=== PATIENT | female | born 1985 | race Caucasian/White ===

== ENCOUNTER 2021-11-13 09:15 | Emergency (ER) | payer OTHER, SELFPAY ==
[2021-11-13 09:43] VITALS: BP 145/86; PULSE 97; RESP 20; TEMP 37.2; O2SAT 100; BMI 32.4
[2021-11-13 09:52] LABS: Appearance Urine UA CLEAR; Bilirubin Urine UA NEGATIVE (NEGATIVE); Color Urine UA YELLOW; Glucose Urine UA NEGATIVE (Negative); Ketones Urine UA NEGATIVE (NEGATIVE); Leukocyte Esterase Urine UA NEGATIVE (NEGATIVE); Nitrite Urine UA NEGATIVE (Negative); Occult Blood Urine UA NEGATIVE (Negative); Protein Urine UA 1+ (Negative); Urobilinogen Urine UA 0.2 E.U./dL (0.2)
--- NOTE | 2021-11-13 10:00 | ED.GENADULT ---
HPI - General Adult General Chief complaint: Upper Respiratory Symptoms Stated complaint: 36 weeks sob Time Seen by Provider: 11/13/21 09:59 Source: patient Mode of arrival: Ambulatory Limitations: no limitations History of Present Illness HPI narrative: Patient is a 36-year-old otherwise healthy female at 36 weeks EGA who is here for evaluation of a couple days of upper respiratory infection like symptoms to include cough and sore throat and sinus congestion. She states that the shortness of breath secondary to her coughing. Nonproductive cough. No fevers. Has not tried anything for the symptoms. Has worsened over the past couple days. Denies any abdominal pain, cramping, urinary symptoms, vaginal bleeding or vaginal discharge. She is new to the area. Does not have an OB doctor locally. Stated that she was going to receive a call on Monday from the local clinic to establish her with a primary OB. Review of Systems Constitutional Constitutional: Reports system reviewed and no additional complaints, except as documented Eyes Eyes: Reports system reviewed and no additional complaints, except as documented ENT Ears, Nose, Mouth, and Throat: Reports system reviewed and no additional complaints, except as documented Respiratory Respiratory: Reports system reviewed and no additional complaints, except as documented Gastrointestinal Gastrointestinal: Reports system reviewed and no additional complaints, except as documented Genitourinary Genitourinary: Reports system reviewed and no additional complaints, except as documented Hematologic/Lymphatic On Anticoagulants: No Allergic/Immunologic Allergic/Immunologic: Reports system reviewed and no additional complaints, except as documented Patient History Medical History Healthy adult Social History lives independently: Yes Exam Initial Vital Signs Initial Vital Signs: Vital Signs Temperature 98.9 F 11/13/21 09:43 Pulse Rate 97 H 11/13/21 09:43 Respiratory Rate 20 11/13/21 09:43 Blood Pressure 145/86 H 11/13/21 09:43 Pulse Oximetry 100 11/13/21 09:43 Oxygen Delivery Method 11/13/21 09:43 Const General: cooperative and healthy appearing HENMT Ears: EAC's normal and TM abnormal bulging bilaterally and wth effusion (Bilateral); not erythematous Mouth: oral mucosae normal Throat: posterior oropharynx normal Neck Lymphatic: No lymphadenopathy Resp Effort & Inspection: normal respiratory effort Cardio Rate: regular rate GI Other: Gravid abdomen Skin General: no rashes or lesions noted Neuro General: patient alert, patient awake and moves all extremities Extrem General: normal to inspection Course Orders Ordered: ED Orders 11/13/21 09:45 Urinalysis and Microscopic Stat 11/13/21 09:49 Respiratory Panel (Film Array) Stat Vital Signs Vital signs: Vital Signs - 8 hr 11/13/21 09:43 Temperature 98.9 F Pulse Rate 97 H Respiratory Rate 20 Blood Pressure 145/86 H Pulse Oximetry 100 Oxygen Delivery Method Room Air Medical Decision Making Lab Data Labs: Lab Results 11/13/21 11/13/21 Range/Units 09:45 09:49 Urine Color Yellow Urine Appearance Clear Urine pH 7.5 (4.5-8.0) Ur Specific [place] 1.010 (1.000-1.035) Urine Protein 1+ H (Negative) Urine Glucose (UA) Negative (Negative) g/dL Urine Ketones Negative (NEGATIVE) Urine Occult Blood Negative (Negative) Urine Nitrate Negative (Negative) Urine Bilirubin Negative (NEGATIVE) Urine Urobilinogen 0.2 (0.2) E.U./dL Ur Leukocyte Esterase Negative (NEGATIVE) Urine RBC 0-1/hpf (0-5/HPF) Urine WBC 5-10/hpf H (0-5/HPF) Ur Squamous Epith Cells 10-30 /hpf H (0-5/HPF) Urine Bacteria Many (>30) H (None) Ur Culture Indicated? Cult not indicated Chlamy pneumoniae PCR Not detected (Not Detect) Adenovirus (PCR) Not detected (Not Detect) B. pertussis DNA (PCR) Not detected (Not Detecte) B.parapertussis DNA PCR Not detected (Not Detecte) Coronavirus OC43 (PCR) Not detected (Not Detect) Coronavirus HKU1 (PCR) Not detected (Not Detect) Coronavirus 229E (PCR) Not detected (Not Detect) SARS-CoV-2 (PCR) Not detected (Not Detecte) Coronavirus NL63 (PCR) Not detected (Not Detect) Human Metapneumovir PCR Not detected (Not Detect) Influenza A (RT-PCR) Cancelled Influenza Type A (PCR) Not detected (Not Detect) Influenza B (RT-PCR) Cancelled Influenza Type B (PCR) Not detected (Not Detect) M. pneumoniae (PCR) Not detected (Not Detect) Parainfluenza 1 (PCR) Not detected (Not Detect) Parainfluenza 2 (PCR) Not detected (Not Detect) Parainfluenza 3 (PCR) Not detected (Not Detect) Parainfluenza 4 (PCR) Not detected (Not Detect) RSV (PCR) Not detected (Not Detect) Entero/Rhino (PCR) Not detected (Not Detect) MDM Narrative Medical decision making narrative: Patient does have an obvious upper respiratory infection but respiratory panel was negative. COVID is negative. Flu is negative. Does have bulging bilateral tympanic membranes without erythema. Initial blood pressure elevated however repeat was normal. She did have preeclampsia with her 1st . No further workup needed here in the emergency department for now however she does require follow-up for this. She is scheduled to receive a phone call from her new primary OBs office on Monday for follow-up. Here in the emergency department she is not having abdominal cramping or bleeding or other signs of labor. Will discharge home with symptom treatment. We did discuss this. She was given return precautions. She expressed understanding and agreement. Discharge Plan Departure Patient Disposition: Home Clinical Impression: Upper respiratory infection Instructions: DI for Viral Upper Respiratory Infection -- Adult Activity Restrictions/Additional Instructions: You can take Claritin during . You can also take Benadryl. You can take Tylenol for any fevers or body aches. It is important that you make contact with an OB provider here in the local area given the stage of your . Return to the emergency department for any new or worsening symptoms. Referrals: Provider,Sebastian SAUER [Primary Care Provider] -
[2021-11-13 10:08] LABS: RBC Urine 0-1/HPF (0-5/HPF); WBC Urine 5-10/HPF (0-5/HPF); pH Urine UA 7.5 (4.5-8.0)
[2021-11-13 10:09] LABS: Bacteria Urine Many (>30); Culture Indicated Urine Cult Not Indicated; Squamous Epithelial Cell Urine 10-30 /HPF (0-5/HPF)
[2021-11-13 10:48] LABS: Adenovirus Not Detected (Not Detect); B. parapertussis Not Detected (Not Detecte); Bordetella pertussis Not Detected (Not Detecte); Chlamydophila pneumoniae Not Detected (Not Detect); Coronavirus 229E Not Detected (Not Detect); Coronavirus HKU1 Not Detected (Not Detect); Coronavirus NL 63 Not Detected (Not Detect); Coronavirus OC43 Not Detected (Not Detect); Human Metapneumovirus Not Detected (Not Detect); Human Rhinovirus/Enterovirus Not Detected (Not Detect); Influenza A Not Detected (Not Detect); Influenza B Not Detected (Not Detect); Mycoplasma pneumoniae Not Detected (Not Detect); Parainfluenza Virus 1 Not Detected (Not Detect); Parainfluenza Virus 2 Not Detected (Not Detect); Parainfluenza Virus 3 Not Detected (Not Detect); Parainfluenza Virus 4 Not Detected (Not Detect); Respiratory Syncytial Virus Not Detected (Not Detect); SARS- CoV-2 Not Detected (Not Detecte)
[2021-11-13 10:55] VITALS: BP 121/73
[2021-11-13 11:17] VITALS: BP 133/66; PULSE 93; RESP 20; O2SAT 100
== END 2021-11-13 11:18 | disposition home or self-care (01) ==
PROVIDERS: Emergency Provider Emergency Medicine
DX: J06.9 Acute upper respiratory infection, unspecified (principal); Z20.822 Contact with and (suspected) exposure to COVID-19
CPT/HCPCS: 81001; 87633; 99282

== ENCOUNTER → 2021-11-23 14:06 | Outpatient (CLI) | payer OTHER, SELFPAY ==
[2021-11-24 16:25] LABS: Strep Grp B PCR NEG for Grp B Strep
== END ==
PROVIDERS: Visit Provider Obstetrics & Gynecology
DX: Z34.83 Encounter for supervision of other normal pregnancy, third trimester (principal); Z3A.37 37 weeks gestation of pregnancy
CPT/HCPCS: 87653

== ENCOUNTER 2021-12-09 05:48 | Inpatient (IN) | payer OTHER, SELFPAY ==
[2021-12-09] VITALS (7 sets, daily range): BP systolic 115–146; BP diastolic 56–84; PULSE 74–84; RESP 16–21; TEMP 36.1–36.8; O2SAT 97–99
[2021-12-09] MEDS: LACTATED RINGERS 1,000 ML 100 ML IV ×2 (06:05→10:32)
--- NOTE | 2021-12-09 06:13 | SUR.OPER ---
Supine on Padded OR bed, head on pillow, safety belt at thigh, arms secured on padded arm boards at <90 degrees abduction. Bump under right buttock. Legs uncrossed with pillow under knees, gel pad to heels, tape over blanket to lower legs.
[2021-12-09 06:29] LABS: Add Manual Diff / Slide Review NO; Basophils Absolute Auto 100 /uL (0-100); Basophils Percent Auto 0.6 % (0-2); Eosinophils Absolute Auto 100 /uL (0-450); Eosinophils Percent Auto 1.3 % (2-4); Hematocrit 33.3 % (36-46); Hemoglobin 11.4 g/dL (12.0-16.0); Lymphocytes Absolute Auto 1900 /uL (1100-4500); Lymphocytes Percent Auto 19.7 % (25-40); Mean Corpuscular HGB Conc 34.3 % (30-36); Mean Corpuscular Hemoglobin 29.9 PG (26-34); Mean Corpuscular Volume 87.1 fL (80-100); Monocytes Absolute Auto 700 /uL (0-900); Monocytes Percent Auto 7.6 % (3-14); Neutrophils Absolute Auto 6900 /uL (1500-7000); Neutrophils Percent Auto 70.8 % (50-75); Platelet Count 171 X10^3/uL (150-400); Red Blood Cell Count 3.82 X10^6/uL (4.0-5.2); Red Cell Distribution Width 14.7 % (11.6-14.8); White Blood Cell Count 9.8 X10^3/uL (4.5-11.0)
--- NOTE | 2021-12-09 06:38 | PM.OBHP.1 ---
OB HPI Date/Time Date of admission: 12/09/21 Date Patient Seen: 12/09/21 Time Patient Seen: 06:39 History of Present Condition Chief complaint: REPEAT : 2 Para: 1 Estimated Date of Delivery: 12/14/21 Estimated Gestational Age (weeks): 39 Narrative: Seema Phipps is a 36 year old female admitted for repeat Indications Operative indications ( section): previous uterine surgery History of Present care: good care, initiated at week # (9), number of visits (7) and pounds weight gain (20) Dating criteria: LMP confirmed by 1st trimester US Ultrasounds: normal mid trimester US Obstetrical complications: none Medical complications: none Preadmission Labs Blood type: A (+) positive -: Antibody screen: negative, GBS status: negative, HBsAG: negative, HIV: negative and RPR/VDLR: negative -: Chlamydia screen: not detected and Gonorrhea screen: not detected -: Rubella: immune HCAB: negative 1 hr GTT: 164 Prior (ies) History: 02/12/2019 38 week gestation for breech PIH 7 lb 12 oz male Evaluation Evaluation Baseline heart rate: 150 Variability: Moderate (11-25) monitor accelerations: Present Monitor Decelerations: Absent Contraction Frequency (minutes): 0 Category of Tracing: Reactive Status: Category l PFSH Medical History (Updated 12/02/21 @ 21:53 by Nathalie Krishnamurthy) Depression Fibroids (~2018) Healthy adult PTSD (post-traumatic stress disorder) (~2019) Rathke's cleft cyst (~2003) Surgical History (Updated 12/02/21 @ 21:53 by Nathalie Krishnamurthy) Anesthesia History of delivery, antepartum (~02/12/19) Previous section [place] teeth extracted Family History (Updated 12/02/21 @ 21:56 by Nathalie Krishnamurthy) Mother Hypothyroidism Osteopenia Father Healthy adult Grandfather Heart attack Grandmother Healthy adult Grandmother Dementia Hypothyroidism Grandfather Dementia Obesity History of heart disease Mental health problem Family/Other Dementia Family/Other Jorge's thyroiditis Brother Autism Social History marital status: number of children: 1 household members: spouse and children lives independently: Yes housing: house pets and animals: No education level: master's degree occupational status: employed current occupational exposures/hazards: No special lj needs: No travel history: recent (domestic only) seatbelt use: always water heater temp set < 120 deg: Yes working smoke detector in home: Yes fire extinguisher in home: Yes carbon monox detector in home: Yes firearms in home: Yes firearms unloaded and locked: Yes do you feel safe at home: Yes Smoking Status: Never smoker alcohol intake: former (2-3/week when not ) substance use type: does not use during the past year weight has: remained stable well-balanced diet: about half the time daily servings fruits/ve-4 caffeine: Yes (1 cup coffee/day) Type(s) of exercise: none Meds Home Medications and Allergies Home Medications Medication Instructions Recorded Confirmed Type aspirin 81 mg tablet,delayed 81 mg PO DAILY 11/17/21 12/03/21 History release prenat.vits,cheng,yom-znkw-lqqzj 1 tab PO DAILY 11/17/21 12/03/21 History Allergies Allergy/AdvReac Type Severity Reaction Status Date / Time Sulfa (Sulfonamide Allergy Intermediate Hives Verified 12/03/21 13:56 Antibiotics) Review of Systems Review of Systems Narrative: Patient is doing well. Good movement. No headaches, scotomata, epigastric pain. No leakage of fluid. No contractions. OB Exam Narrative Exam Narrative: Blood pressure 138/84, pulse 102 HEENT exam within normal limits. Lungs are clear to auscultation percussion. Heart is regular rate and rhythm. Abdomen is soft, nontender. Fetus is vertex. Extremities without edema and nontender. Objective Labs Result Diagrams: 12/09/21 06:00 Labs: Laboratory Results - last 24 hr 12/09/21 06:00 WBC 9.8 RBC 3.82 L Hgb 11.4 L Hct 33.3 L MCV 87.1 MCH 29.9 MCHC 34.3 RDW 14.7 Plt Count 171 Neut % (Auto) 70.8 Lymph % (Auto) 19.7 L [place] % (Auto) 7.6 Eos % (Auto) 1.3 L Baso % (Auto) 0.6 Neut # (Auto) 6900 Lymph # (Auto) 1900 [place] # (Auto) 700 Eos # (Auto) 100 Baso # (Auto) 100 Assessment and Plan Assessment and Plan Assessment and Plan narrative: 39 week gestation with prior section for repeat low-transverse section
[2021-12-09 06:53] LABS: COVID19 -Nasal RAPID Negative (Negative)
[2021-12-09] MEDS: CEFAZOLIN 2 GM/100 ML PREMIX 100 ML IV (07:39)
--- NOTE | 2021-12-09 08:07 | SUR.OPER ---
VIABLE FEMALE INFANT DELIVERED AT 0807. CORD BLOOD AND PLACENTA TO OB WITH RN.
[2021-12-09] MEDS: ACETAMINOPHEN IV 1,000 MG/100 ML VIAL 400 MG IV (08:37)
--- NOTE | 2021-12-09 10:34 | PM.OBCS.1 ---
Operative Date/Time/Diagnoses Date of procedure: 12/09/21 Time of procedure: 08:40 Pre-op diagnosis: 39 week gestation with prior section Post-op diagnosis: same Procedure & Clinicians Procedure: Repeat low-transverse section Same procedure as scheduled: Yes Indications: 39 week gestation with prior section Surgeon: Dominga Zimmerman Wedding Planning Internship: Elda Burr Anesthesia Type: Spinal Operative Notes Findings: Normal tubes, ovaries, uterus. Viable female infant Apgars of 8 and 9 weighting 7 lb 14 oz Closure Type: primary Specimen(s): cord blood Intraoperative meds administered: Acetaminophen, Duramorph, Ketorolac and Pitocin Applied: Catheter (Bowser) Estimated Blood Loss (mL): 700 Blood products transfused: none Procedure in detail: The patient was brought to the operating room where she underwent a spinal for anesthesia. She was placed in a supine position with a left lateral tilt. A Bowser catheter was placed. Pulsatile stockings were placed and functional throughout the case. 2 g of Ancef were given IV prior to the incision. Warming was in place. The patient was prepped and draped in usual sterile fashion. A low transverse incision was made with a scalpel and the incision was carried down to the fascial layer which was incised transversely with scissors. The senior it assistant did her side of the incision. The midline attachments are superiorly and inferiorly with sharp dissection and Bovie. Some bleeding was controlled Bovie. The rectus muscles were in the midline and the peritoneal incision was made with no damage to internal structures. The peritoneum was incised and superiorly and inferiorly. The incision was stretched with the surgeon and senior it assistant placing traction. Bladder blade was placed and a bladder flap was developed and the bladder held away from the lower uterine segment. An incision was made in the uterus with the scalpel and the incision was extended with stretching. The head was elevated out of the abdomen and with fundal pressure by the senior it assistant the baby was delivered. The infant was bulb suctioned for clear fluid and handed off to the warmer after 1 minute of delayed cord clamping. Cord blood was collected. The placenta delivered spontaneously with traction. The uterus was cleaned with clean laps. The uterine incision was closed in 2 layers of 0 chromic suture the first a running locking layer the second an imbricating layer. The senior it assistant was helping to expose the incision. The bladder peritoneum was repaired with 2-0 Vicryl suture. The gutters were cleaned of any remaining fluids and ovaries and tubes were observed to be normal. Adequate hemostasis was noted. The perineum was closed with 2-0 Vicryl suture. The fascia layer was closed with 0 Vicryl suture with 2 stitches. The senior it assistant repairing half the incision with helping to retract and expose the incision for the other half. The incision was irrigated and adequate hemostasis noted. The incision was closed with interrupted 3-0 Vicryl sutures and then a subcuticular stitch of 4-0 Vicryl suture. Steri-Strips were placed. The uterus was massaged to remove any clots. The patient went to recovery room in good condition. Counts of instruments and sponges were correct. Dr. Burr was present throughout the case to assist with retraction, fundal pressure to deliver the infant, and suturing half the fascia. Complications: none [place] Baby 1: Gender: Female Presentation: vertex Position: Right Occiput Transverse Placental Delivery Description: Expressed Cord Vessel Description: 3 Vessels score (1 min): 8 score (5 min): 9 weight: 7 lb 14 oz Post-operative Condition: stable Disposition: PACU Aftercare: routine postop
--- NOTE | 2021-12-09 10:41 | PM.PREOP ---
Pre-operative Note COVID-19 COVID-19 status: Negative Result date/Date tested (Pos, Neg/Pending): 12/09/21 Criteria for continued procedure: Delay expected to result in less-positive ultimate med/surg outcome Interval Note History & Physical reviewed/Exam performed by Physician: Yes Changes to H&P: No
[2021-12-09] MEDS: KETOROLAC 30 MG/ML VIAL IV ×2 (14:45→21:31)
[2021-12-10] MEDS: KETOROLAC 30 MG/ML VIAL IV (03:43)
[2021-12-10 06:42] LABS: Add Manual Diff / Slide Review NO; Basophils Absolute Auto 0 /uL (0-100); Basophils Percent Auto 0.3 % (0-2); Eosinophils Absolute Auto 100 /uL (0-450); Hematocrit 27.2 % (36-46); Hemoglobin 9.3 g/dL (12.0-16.0); Lymphocytes Absolute Auto 1000 /uL (1100-4500); Lymphocytes Percent Auto 10.9 % (25-40); Mean Corpuscular HGB Conc 34.2 % (30-36); Mean Corpuscular Hemoglobin 29.9 PG (26-34); Mean Corpuscular Volume 87.3 fL (80-100); Monocytes Absolute Auto 600 /uL (0-900); Monocytes Percent Auto 6.6 % (3-14); Neutrophils Absolute Auto 7500 /uL (1500-7000); Neutrophils Percent Auto 81.2 % (50-75); Platelet Count 125 X10^3/uL (150-400); Red Blood Cell Count 3.11 X10^6/uL (4.0-5.2); Red Cell Distribution Width 15.1 % (11.6-14.8); White Blood Cell Count 9.2 X10^3/uL (4.5-11.0)
[2021-12-10] MEDS: DOCUSATE 100 MG CAPSULE 200 MG PO (08:21)
[2021-12-10] MEDS: ACETAMINOPHEN 325 MG TABLET 650 MG PO ×3 (08:21→22:30)
--- NOTE | 2021-12-10 09:29 | PM.OBPN.1 ---
Subjective - OB Subjective Patient comments: incisional pain baby status: doing well feeding status: exclusively breast feeding Date Patient Seen: 12/10/21 Time Patient Seen: 09:29 Interval history: Patient is postoperative day 1 repeat section. She feels she is doing well. She has been able to urinate since her Bowser catheter was removed. Her pain is tolerable. Her bleeding is okay. Exam Vital Signs (past 8 hours): Blood pressure 128/79, pulse 92, temperature 37? Oxygen Delivery Method Room Air Narrative Exam Narrative: Abdomen is soft, nontender. Uterus is firm, at U, appropriately tender. Dressing is clean, dry, intact. Mild lochia. Extremities with +1 edema but nontender. Objective Labs Result Diagrams: 12/10/21 06:19 Labs: Laboratory Results - last 24 hr 12/10/21 06:19 WBC 9.2 RBC 3.11 L Hgb 9.3 L Hct 27.2 L MCV 87.3 MCH 29.9 MCHC 34.2 RDW 15.1 H Plt Count 125 L Neut % (Auto) 81.2 H Lymph % (Auto) 10.9 L [place] % (Auto) 6.6 Eos % (Auto) 1.0 L Baso % (Auto) 0.3 Neut # (Auto) 7500 H Lymph # (Auto) 1000 L [place] # (Auto) 600 Eos # (Auto) 100 Baso # (Auto) 0 Assessment & Plan Plan day: 1 plan OB: routine postop care Time Spent With Patient Time: Total time spent is greater than 50% in coordination of care (as documented) at patient's floor/unit and/or counseling patient: Time with patient: less than 15 minutes
[2021-12-10] MEDS: IBUPROFEN 600 MG TABLET PO ×3 (10:28→22:30)
[2021-12-10 15:00] VITALS: BP 129/73; PULSE 79; RESP 17; TEMP 36.8
[2021-12-11] MEDS: IBUPROFEN 600 MG TABLET PO ×2 (04:00→11:03)
[2021-12-11] MEDS: ACETAMINOPHEN 325 MG TABLET 650 MG PO ×2 (04:00→11:04)
--- NOTE | 2021-12-11 09:18 | PM.OBDS.1 ---
Discharge Providers Provider Date of admission: 12/09/21 05:48 Discharge Date: 12/11/21 Primary care physician: Sebastian SAUER Provider Consults: 12/09/21 10:53 Consult to Medical Territory Manager Routine Comment: Discharge provider: Dominga Zimmerman MD Summary Hospital Course Date Patient Seen: 12/11/21 Time Patient Seen: 09:18 Diagnoses: Repeat section Hospital Course: Patient underwent a repeat low-transverse section for 39 week gestation with prior section. Patient is pumping to breastfeed. Her pain is under control. She is urinating and ambulating well. She is passing gas. Mild lochia. Peripartum Data Delivery Method: Section Procedures: Repeat low-transverse section complications: none [place] 1: Gender: Female Disposition of : home Discharge Diagnosis (1) Delivery by section using transverse incision of lower segment of uterus: Status: Acute Status at Discharge Cognitive/behavioral status at discharge: oriented Functional status at discharge: independent ambulation Overall status at discharge: patient is progressing back to baseline Time Spent with Patient Time attestation: Total time spent providing and/or coordinating discharge services: Time spent: Less than 30 minutes Objective Labs Result Diagrams: 12/10/21 06:19 Exam Vital Signs (past 8 hours): Blood pressure 121/71, pulse of 87, temperature 97.4? Oxygen Delivery Method Room Air Narrative Exam Narrative: Abdomen is soft, nontender. Uterus is firm, at U, appropriately tender. Dressing is clean, dry, intact. Mild lochia. Extremities with tr edema but improving and nontender. Discharge Plan Discharge Plan Patient Disposition: Home Provider Discharge Comment: Patient also advised to take shhh-rzg-curpbic iron along with her vitamins for anemia. Discharge orders & Medications Prescriptions: New ibuprofen 600 mg Tablet 600 mg PO Q6H PRN (Reason: Fever/Mild Pain (1-3)) Qty: 30 0RF oxycodone 5 mg Tablet 5 mg PO Q4H PRN (Reason: Pain, Moderate (4-6)) Qty: 20 0RF Continued prenat.vits,cheng,ueo-roti-hmtix Tablet 1 tab PO DAILY Discontinued aspirin 81 mg tablet,delayed release (DR/EC) 81 mg PO DAILY Follow up/Referrals: Dominga Zimmerman MD [Physician] - 1 Week (Aquacel removal. Any provider or nurse visit) Provider,Sebastian SAUER [Primary Care Provider] - Diet/Activity/Treatments Diet: Regular Activity: Nothing in vagina or do not lift over 20 lb for 6 weeks. Skin/Wound/Dressing Care Report to your healthcare provider any signs of infection, such as:: chills, fever and increased pain Dressing: Leave dressing on until your one-week postop visit Discharge Data Primary Care Provider: Sebastian Mccarty
== END 2021-12-11 12:59 | disposition home or self-care (01) | DRG 788 ==
PROVIDERS: Admitting Provider Specialist; Referring Provider Specialist; Visit Provider Specialist
PROC: 10D00Z1 Extraction of Products of Conception, Low, Open Approach (ICD-10-PCS; CPT 59514; principal; 2021-12-09 07:00)
DX: O34.211 Maternal care for low transverse scar from previous cesarean delivery (principal); Z3A.39 39 weeks gestation of pregnancy; Z37.0 Single live birth; Z20.822 Contact with and (suspected) exposure to COVID-19
CPT/HCPCS: 36415; 59050; 59514; 59515; 85025; 86850; 86900; 86901; 87635; C9803; J0131; J0690; J1885; J2274; J2590; J2704

== ENCOUNTER → 2023-09-07 11:49 | Outpatient (CLI) | payer OTHER, SELFPAY ==
--- NOTE | 2023-09-07 11:51 | DI.MRI.S_ITS ---
PROCEDURE: MR HIP LT WO CON INDICATIONS: LEFT HIP PAIN TECHNIQUE: Noncontrast coronal T1 spin echo and STIR through the bony pelvis. Coronal and axial T2 fast spin echo with fat saturation, sagittal T1 spin echo, and oblique axial T2 fast spin echo with fat saturation through the hip. COMPARISON: [facility] Outside Film, MR, MR LUMBAR SPINE WITHOUT CONTRAST, 01/03/2023, 12:51. FINDINGS: Image quality: Excellent. Bones and joints: Extensive heterogeneous marrow signal in the visualized lower lumbar spine, and pelvic bones. No marrow edema of the visualized lower lumbar spine, the sacrum, and either posterior iliac wing. The visualized sacrum is intact. The bilateral hips are well aligned. No acute fracture or dislocation either hip. No avascular necrosis of either femoral head. No significant effusion of either hip. Tendons and ligaments: The left iliopsoas, and adductor tendon are unremarkable. Mild peritendinitis of the hamstring tendon origin. No high-grade tear of the hamstring tendon. The the left gluteal minimus tendon is unremarkable. Mild peritendinitis of the left gluteal medius. Labrum and cartilage: Anterior superior labral tear. No paralabral cyst. No focal chondral defect of the left hip. Soft tissues: Susceptibility about the uterus, nonspecific and may be postprocedural. IMPRESSION: 1. Extensive heterogeneous marrow signal in the visualized lower lumbar spine, and bilateral pelvic bones, nonspecific. Recommend correlation with CBC. The marrow signal of the visualized lower lumbar spine is grossly unchanged from prior exam on 01/03/2023. 2. Mild peritendinitis of the left hamstring tendon origin and the left gluteus medius. Dictated by: Frida Aranda M.D. on 09/07/2023 at 16:54 Approved by: Frida Aranda M.D. on 09/07/2023 at 17:03
== END ==
PROVIDERS: Family Provider Student in an Organized Health Care Education/Training Program; PCP Student in an Organized Health Care Education/Training Program; Referring Provider Student in an Organized Health Care Education/Training Program; Visit Provider Student in an Organized Health Care Education/Training Program
DX: M76.02 Gluteal tendinitis, left hip (principal); M25.552 Pain in left hip
CPT/HCPCS: 73721

== ENCOUNTER 2023-12-18 09:00 | Outpatient (RCR) | payer OTHER, SELFPAY ==
--- NOTE | 2023-09-07 17:05 | PT.OIE ---
Current Diagnoses Constipation, unspecified (09/07/23) Stiffness of unspecified hip, not elsewhere classified (09/07/23) Stiffness of other specified joint, not elsewhere classified (09/07/23) Muscle weakness (generalized) (09/07/23) Stress incontinence (female) (male) (09/07/23) Past Medical History (Last Updated 01/19/22 @ 12:44 by Elier Morales MD) Delivery by section using transverse incision of lower segment of uterus (~12/09/21) Depression Fibroids (~2018) Healthy adult PTSD (post-traumatic stress disorder) (~2019) Rathke's cleft cyst (~2003) Past Surgical History (Last Updated 12/02/21 @ 21:53 by Nathalie Krishnamurthy) Anesthesia History of delivery, antepartum (~02/12/19) Previous section Jean teeth extracted Visit Care Team Role Provider Type Yraed Zavaleta DO Attending Provider Non-Staff Family Provider Primary Care Provider Referring Provider Specialty: Family Practice Address: [address] [place] [address], [facility] Email: Physical Therapy Initial Evaluation PT-OP-A Visit Information Start: 08/25/23 19:38 Freq: Status: Active Protocol: Document 09/07/23 10:40 LRN (Rec: 09/07/23 11:26 LRN [id number]) Out-Patient Physical Therapy Visit Information Visit Information Visit Type Initial Evaluation Visit Start Time 10:40 Visit Stop Time 11:25 Visit Number 03/10 Evaluation Information Evaluation Date 09/07/23 Precautions Precautions History of 2 C-sections: breach-01/2019, & 11/2021 PT-OP-B Current Condition Start: 08/25/23 19:38 Freq: Status: Active Protocol: Document 09/07/23 10:40 LRN (Rec: 09/07/23 11:26 LRN [id number]) Current Condition History of Current Condition Onset Date 2021 Current Complaints Urinary incontinence History of Current Condition After daughter born in 2021, had urinary incontinence with cough, sneeze, laugh; started U[employer] program for 1-2 yrs and thinks she made it worse because she had to take time to fully empty bladder and her symptoms didn't improve, stating may have made it worse. She returned to running 6 months ago 2x/wk, 10 mi/wk (previously was 5x/wk & 40 mi/wk). She states she hasn't noticed a change in her leakage with return to running. The pt voids before running, but leaks a little when she first starts running. Prior Treatments and Tests Pt is taking on her own weight control medications. Future Testing and Treatments Planned [employer] referral for kidney function. Treatment Goals Patient/Caregiver Goals Pt goals: Regain continence with cough, sneeze, laugh Normal fluid levels (in/out) and normal bowel movements. Learn what she needs to do to be come continent and agreeable HEP for post therapy . 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 Taking weight control medications independent of medical care. Pt receiving care for possible kidney dysfunction. PT-OP-C Subjective Start: 08/25/23 19:38 Freq: Status: Active Protocol: Document 09/07/23 10:40 LRN (Rec: 09/07/23 11:26 LRN [id number]) Patient Questionnaires Pelvic Pain and Urgency/Frequency Patient Symptom Scale Pelvic Pain Score 7 PT-OP-I Pelvic Floor Start: 08/25/23 19:38 Freq: Status: Active Protocol: Document 09/07/23 10:40 LRN (Rec: 09/07/23 11:26 LRN [id number]) Pelvic Floor Assessment Urine Urinary Symptoms Hesitancy,Incomplete Emptying Other Urinary Symptoms Has to sit longer to urinate and has to relax to urinate more. Urinates normal but has to wait a little longer to complete emptying. Sometimes has urge to urinate during intercourse; therefore urinates always after intercouse and has to wait longer to urinate after intercourse and has hesitancy. Leakage Size Small Leakage Cause Cough,Exercise,Sneeze Nocturia 1-2 Pads Used In 24 Hours 0 Bowel Bowel Symptoms Constipation Other Bowel Symptoms Medication: for weight loss medication not under physician care. Bowel Movement Frequency 1-3x/week [place] Stool Chart Type 1-7 3 Pelvic Clock Pelvic Clock Other Gaping at vaginal entry. Prolapse Rectocele Grade 1 Perineal Descent Resting Present Bearing Present Contraction Ability Voluntary Contraction Moderate Voluntary Relaxation Weak Manual Muscle Testing Left 3 Manual Muscle Testing Right 3 Manual Muscle Testing Anterior 2 Manual Muscle Testing Posterior 1 Muscle Endurance (Seconds) 10 Number of Quick Contractions In 10 6 Seconds PT-OP-J Posture/Palpation/Skin Start: 08/25/23 19:38 Freq: Status: Active Protocol: Document 09/07/23 10:40 LRN (Rec: 09/07/23 11:26 LRN [id number]) Posture Evaluation Position Standing Head/C-Spine Posture Forward Head L-Spine Posture Increased Lordosis Shoulder Posture (R) Elevated Pelvis Posture Anteriorly Tilted Comments Posture Comments Dowagers hump. PT-OP-K Range of Motion Start: 08/25/23 19:38 Freq: Status: Active Protocol: Document 09/07/23 10:40 LRN (Rec: 09/07/23 11:26 LRN [id number]) Lumbar Spine Range of Motion Lumbar Spine Active Degrees Testing Position Standing Flexion 87 Extension 15 Rotation Left 20 Rotation Right 30 Lateral Flexion Left 18 Lateral Flexion Right 15 Hip Goniometric Range of Motion Hip Right Passive Testing Position Supine Abduction 32 Internal Rotation 30 External Rotation 60 Left Passive Testing Position Supine Abduction 25 Internal Rotation 30 External Rotation 65 PT-OP-M Strength Start: 08/25/23 19:38 Freq: Status: Active Protocol: Document 09/07/23 10:40 LRN (Rec: 09/07/23 11:26 LRN [id number]) Hip Strength Hip Manual Muscle Testing Right Flexion (L2) 3 Fair Comments Strength is 5/5 except as indicated above. Left Extension (S1) 3 Fair External Rotation 3+ Fair+ Comments Strength is 5/5 except as indicated above. PT-OP-Q Treatments Start: 08/25/23 19:38 Freq: Status: Active Protocol: Document 09/07/23 10:40 LRN (Rec: 09/07/23 11:26 LRN [id number]) Self-Care/Home Management Treatment Education Other Education Discussed results of evaluation, goals, treatment, and plan of care (POC) with pt , attendance/cx/dns policy; pt agreeable to evaluation, goals, treatment, attendance/ cx/dns policy and POC. Discussed and educated pt in specifics for completion of in use of Bladder Diary and I/S in tracking for 1 week. Discussed use of 2 different diaries (one to chart, one to take notes) for tracking of bladder for next 7 days. Activities Self-Care/Home Management Activities Issued & briefly reviewed HEP: Diaphragmatic breathing ex. PT-OP-T Assessment and Plan Start: 08/25/23 19:38 Freq: Status: Active Protocol: Document 09/07/23 10:40 LRN (Rec: 09/07/23 11:26 LRN [id number]) Physical Therapy Assessment Rehab Potential Rehabilitation Potential Good Evaluation Complexity Number of Personal Factors/Comorbidities 3 or More Number of Body Systems Impaired 4 or More Clinical Presentation at Evaluation Evolving Impairments Impairments Activity Tolerance,ROM,Soft Tissue Mobility,Strength, Transfers Goals Three Impairment MCKENZIE with a strong cough, sneeze or laughing. Short Term Goal (STG) Improve PF strength with Long Hold 10 sec's (per Vemg biofeedback) and Quick Flicks 8 reps prior to fatigue ( Initial: Long Hold 10 secs, Quick Flicks 6 reps), and relax her PF floor so that she can initiate a urinary stream without long delay or having to void twice to empty. 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 LTG Duration 16 wks-12/29/23 Two Impairment Constipation with reports of dehydration Short Term Goal (STG) Pt will be educated and able to recall norms for fluids input/output and BMs. STG Duration 8 wks-11/03/23 [facility] Goal (LTG) Pt will track daily fluid input/output and BM's to improve to normal values (1/2 body wgt in ounces) and daily bowel movements. LTG Duration 16 wks-12/29/23 One Impairment Pt lacks an independent self care HEP. Short Term Goal (STG) Pt educated in aggrevator ex's and in methods to quiet the autonomic nervous system to decrease resting tone. STG Duration 8 wks-11/03/23 [facility] Goal (LTG) Pt will be independent in a self care HEP for PF flexibility/relaxation techniques, BM massage and Bowel care, . Learn what she needs to do to be come continent and agreeable HEP for post therapy . 09/07/23: HEP: Diaphragmatic breathing ex. LTG Duration 16 wks-12/29/23 Assessment Summary Assessment Pt is a 38 yo female with stress urinary incontinence, demonstrating poor core pressure management, poor core stabilization (weak TA/Trunk rotators), asymmetry of mobility of her hips/trunk, and per subjective report poor fluid & bowel management. Subjective report would indicate a tight PF with gapping of her introitus and good PF strength per digital exam, but she has no areas of tenderness with manual palpation. Fluid & bowel management is probably placing a lot of stress on her bladder and possible scarring from her may be a bigger factor in her urinary leakage. Further assessment through VEMG electrode will be more telling of her PF strength at her next visit. The pt will benefit from skilled physical therapy to address the areas as previously mentioned and to work towards achieving the above stated goals. Rehabilitation time is expected to be prolonged due to gaps in treatment from summer schedules and her multiple areas of involvement (kidney concerns & self over- the-counter medications for weight management). Physical Therapy Plan Frequency and Duration Frequency of Treatment 1x/Week Duration of treatment (weeks) 16 Plan of Care Start Date 09/07/23 Plan of Care End Date 12/29/23 Therapeutic Interventions Therapeutic Interventions Home Exercise Program,Joint Mobilizations,Manual Therapy, Neuromuscular Re-education, Self-Care/Home Management,Soft Tissue Mobilization,Taping, Therapeutic Activities, Therapeutic Exercises Modalities Biofeedback Next Visit Focus/Plan Next Note Type Treatment Note Next Visit Plan New POC after 10/19/23 referral end date, if more visits needed. Next: Assess PF strength/ relaxation per Vemg biofeedback and neuro re-ed for PF training. Assess bladder diary for fluid/bowel management and recommend changes as needed. Trunk and hip stretches for symmetry, hip strengthening, STM to C- section scar, & assess for need of sacral balancing, pt education in core pressure mgmt and PF relaxation w/ voiding. POC: Pt education, Manual therapy. Biofeedback/neural re-ed with vaginal sensor. Therapeutic Exercises, Therapeutic Activities, Neuromuscular Reeducation.
--- NOTE | 2023-09-11 16:00 | PT.OTN ---
Current Diagnoses Constipation, unspecified (09/11/23) Stiffness of unspecified hip, not elsewhere classified (09/11/23) Stiffness of other specified joint, not elsewhere classified (09/11/23) Muscle weakness (generalized) (09/11/23) Stress incontinence (female) (male) (09/11/23) Physical Therapy Treatment Note PT-OP-A Visit Information Start: 08/25/23 19:38 Freq: Status: Active Protocol: Document 09/11/23 10:42 LRN (Rec: 09/11/23 11:31 LRN [id number]) Out-Patient Physical Therapy Visit Information Visit Information Visit Type Treatment Note Visit Start Time 10:42 Visit Stop Time 11:30 Visit Number 04/10 Evaluation Information Evaluation Date 09/07/23 Precautions Precautions History of 2 C-sections: breach-01/2019, & 11/2021 PT-OP-B Current Condition Start: 08/25/23 19:38 Freq: Status: Active Protocol: Document 09/07/23 10:40 LRN (Rec: 09/07/23 11:26 LRN [id number]) Current Condition History of Current Condition Onset Date 2021 Current Complaints Urinary incontinence History of Current Condition After daughter born in 2021, had urinary incontinence with cough, sneeze, laugh; started [employer] program for 1-2 yrs and thinks she made it worse because she had to take time to fully empty bladder and her symptoms didn't improve, stating may have made it worse. She returned to running 6 months ago 2x/wk, 10 mi/wk (previously was 5x/wk & 40 mi/wk). She states she hasn't noticed a change in her leakage with return to running. The pt voids before running, but leaks a little when she first starts running. Prior Treatments and Tests Pt is taking on her own weight control medications. 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 Treatment Goals Patient/Caregiver Goals Pt goals: Regain continence with cough, sneeze, laugh Normal fluid levels (in/out) and normal bowel movements. Learn what she needs to do to be come continent and agreeable HEP for post therapy . 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 Taking weight control medications independent of medical care. Pt receiving care for possible kidney dysfunction. PT-OP-C Subjective Start: 08/25/23 19:38 Freq: Status: Active Protocol: Document 09/11/23 10:42 LRN (Rec: 09/11/23 11:31 LRN [id number]) OP-PT Subjective Patient Comments Patient Comments Still working on her bladder diary. PT-OP-I Pelvic Floor Start: 08/25/23 19:38 Freq: Status: Active Protocol: Document 09/11/23 10:42 LRN (Rec: 09/11/23 11:31 LRN [id number]) Pelvic Floor Assessment SEMG (uV) Baseline 8.7 Quick Contraction 18.4 10 Second Contraction 22.0 Recruitment Pattern Good Relaxation Good Holding Fair Stability of Hold Fair SEMG Stability of Rest Fair Comments Pelvic Floor Comments Quick Flicks: 10 reps strength (uV's): avg work 18.4, avg 10.3 rest . 20 reps strength (uV's): avg work 17.9, avg 10.7 rest . Long Holds: 10 reps strength (uV's): avg work , avg rest . 20 rep s strength (uV's): avg work , avg rest . PT-OP-J Posture/Palpation/Skin Start: 08/25/23 19:38 Freq: Status: Active Protocol: Document 09/07/23 10:40 LRN (Rec: 09/07/23 11:26 LRN [id number]) Posture Evaluation Position Standing Head/C-Spine Posture Forward Head L-Spine Posture Increased Lordosis Shoulder Posture (R) Elevated Pelvis Posture Anteriorly Tilted Comments Posture Comments Dowagers hump. PT-OP-K Range of Motion Start: 08/25/23 19:38 Freq: Status: Active Protocol: Document 09/07/23 10:40 LRN (Rec: 09/07/23 11:26 LRN [id number]) Lumbar Spine Range of Motion Lumbar Spine Active Degrees Testing Position Standing Flexion 87 Extension 15 Rotation Left 20 Rotation Right 30 Lateral Flexion Left 18 Lateral Flexion Right 15 Hip Goniometric Range of Motion Hip Right Passive Testing Position Supine Abduction 32 Internal Rotation 30 External Rotation 60 Left Passive Testing Position Supine Abduction 25 Internal Rotation 30 External Rotation 65 PT-OP-M Strength Start: 08/25/23 19:38 Freq: Status: Active Protocol: Document 09/07/23 10:40 LRN (Rec: 09/07/23 11:26 LRN [id number]) Hip Strength Hip Manual Muscle Testing Right Flexion (L2) 3 Fair Comments Strength is 5/5 except as indicated above. Left Extension (S1) 3 Fair External Rotation 3+ Fair+ Comments Strength is 5/5 except as indicated above. PT-OP-Q Treatments Start: 08/25/23 19:38 Freq: Status: Active Protocol: Document 09/11/23 10:42 LRN (Rec: 09/11/23 11:31 LRN [id number]) Therapeutic Exercises Supine Exercises Hip ER stretch Supine Exercise Name Fig 4 stretch Side bilateral Reps/Minutes 4' Piriformis stretch Supine Exercise Name Knee crossed over ankle and knee to opp shoulder. Side right Reps/Minutes 4' Long Hold Kegel Supine Exercise Name 10 SH/10 SR Reps/Minutes 13' Quick Kegel Supine Exercise Name 2 SH/4 SR Reps/Minutes 8' Resting PF Supine Exercise Name Feedback on resting. Reps/Minutes 3' Comments Cued to not move feet, arms, talk, laugh. Deep Breathing Reps/Minutes 8' Comments Hand placment chest/abdomen with much cuing for coordination of breathing. PT-OP-T Assessment and Plan Start: 08/25/23 19:38 Freq: Status: Active Protocol: Document 09/11/23 10:42 LRN (Rec: 09/11/23 11:31 LRN [id number]) Physical Therapy Assessment Goals Three Impairment MCKENZIE with a strong cough, sneeze or laughing. Short Term Goal (STG) Improve PF strength with Long Hold 10 sec's (per Vemg biofeedback) and Quick Flicks 8 reps prior to fatigue ( Initial: Long Hold 10 secs, Quick Flicks 6 reps), and relax her PF floor so that she can initiate a urinary stream without long delay or having to void twice to empty. STG Duration 8 wks-11/03/23 [employer] Goal (LTG) Improve PF strength of contraction of endurance to regain continence with coughing, sneezing or laughing . LTG Duration 16 wks-12/29/23 Two Impairment Constipation with reports of dehydration Short Term Goal (STG) Pt will be educated and able to recall norms for fluids input/output and BMs. STG Duration 8 wks-11/03/23 [employer] Goal (LTG) Pt will track daily fluid input/output and BM's to improve to normal values (1/2 body wgt in ounces) and daily bowel movements. LTG Duration 16 wks-12/29/23 One Impairment Pt lacks an independent self care HEP. Short Term Goal (STG) Pt educated in aggrevator ex's and in methods to quiet the autonomic nervous system to decrease resting tone. STG Duration 8 wks-11/03/23 [employer] Goal (LTG) Pt will be independent in a self care HEP for PF flexibility/relaxation techniques, BM massage and Bowel care, . Learn what she needs to do to be come continent and agreeable HEP for post therapy . 09/07/23: HEP: Diaphragmatic breathing ex. 09/11/23: Diaphragmatic breathing review, pt able to perform with training and cuing. LTG Duration 16 wks-12/29/23 progressed 09/11/23. Assessment Summary Assessment Pt is a 38 yo female with stress urinary incontinence, demonstrating poor core pressure management, poor core stabilization (weak TA/Trunk rotators), asymmetry of mobility of her hips/trunk, and per subjective report poor fluid & bowel management. Subjective report would indicate a tight PF with gapping of her introitus and good PF strength per digital exam, but she has no areas of tenderness with manual palpation. Fluid & bowel management is involved and scarring from her may be a bigger factor in her urinary leakage. Pt needed more training for proper deep breathing. Today, pt attends without bladder diary because she reportedly is still working on it. Noted pt breath holds with Kegel creating a strong Kegel that she can hold the contraction, and she is randomly able to relax the PF at various times per Vemg assessment, stability of hold is fair and relaxation is poor with high resting tone. Physical Therapy Plan Frequency and Duration Frequency of Treatment 1x/Week Duration of treatment (weeks) 16 Plan of Care Start Date 09/07/23 Plan of Care End Date 12/29/23 Next Visit Focus/Plan Next Note Type Treatment Note Next Visit Plan New POC after 10/19/23 referral end date, if more visits needed. Next: Assess bladder diary for fluid/bowel management and recommend changes as needed. Assess for need of sacral balancing, stretch PF w/ex and manually. Neuro re-ed for PF training of relaxation ex's/ activities. Trunk and hip stretches for symmetry, hip strengthening, STM to C- section scar. Pt education in core pressure mgmt and PF relaxation w/voiding. POC: Pt education, Manual therapy. Biofeedback/neural re-ed with vaginal sensor. Therapeutic Exercises, Therapeutic Activities, Neuromuscular Reeducation.
--- NOTE | 2023-09-18 13:08 | PT.OTN ---
Current Diagnoses Constipation, unspecified (09/18/23) Stiffness of unspecified hip, not elsewhere classified (09/18/23) Stiffness of other specified joint, not elsewhere classified (09/18/23) Muscle weakness (generalized) (09/18/23) Stress incontinence (female) (male) (09/18/23) Physical Therapy Treatment Note PT-OP-A Visit Information Start: 08/25/23 19:38 Freq: Status: Active Protocol: Document 09/18/23 10:39 LRN (Rec: 09/18/23 11:21 LRN [id number]) Out-Patient Physical Therapy Visit Information Visit Information Visit Type Treatment Note Visit Start Time 10:39 Visit Stop Time 11:18 Visit Number 05/08 Evaluation Information Evaluation Date 09/07/23 Precautions Precautions History of 2 C-sections: breach-01/2019, & 11/2021 PT-OP-B Current Condition Start: 08/25/23 19:38 Freq: Status: Active Protocol: Document 09/07/23 10:40 LRN (Rec: 09/07/23 11:26 LRN [id number]) Current Condition History of Current Condition Onset Date 2021 Current Complaints Urinary incontinence History of Current Condition After daughter born in 2021, had urinary incontinence with cough, sneeze, laugh; started U[employer] program for 1-2 yrs and thinks she made it worse because she had to take time to fully empty bladder and her symptoms didn't improve, stating may have made it worse. She returned to running 6 months ago 2x/wk, 10 mi/wk (previously was 5x/wk & 40 mi/wk). She states she hasn't noticed a change in her leakage with return to running. The pt voids before running, but leaks a little when she first starts running. Prior Treatments and Tests Pt is taking on her own weight control medications. Future Testing and Treatments Planned Manager Women referral for kidney function. Treatment Goals Patient/Caregiver Goals Pt goals: Regain continence with cough, sneeze, laugh Normal fluid levels (in/out) and normal bowel movements. Learn what she needs to do to be come continent and agreeable HEP for post therapy . 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 Taking weight control medications independent of medical care. Pt receiving care for possible kidney dysfunction. PT-OP-C Subjective Start: 08/25/23 19:38 Freq: Status: Active Protocol: Document 09/18/23 10:39 LRN (Rec: 09/18/23 11:21 LRN [id number]) OP-PT Subjective Patient Comments Patient Comments States she received an extension of her visits, through December. Forgot her bladder diary. PT-OP-I Pelvic Floor Start: 08/25/23 19:38 Freq: Status: Active Protocol: Document 09/18/23 10:39 LRN (Rec: 09/18/23 11:21 LRN [id number]) Pelvic Floor Assessment SEMG (uV) Baseline 1.9 PT-OP-J Posture/Palpation/Skin Start: 08/25/23 19:38 Freq: Status: Active Protocol: Document 09/07/23 10:40 LRN (Rec: 09/07/23 11:26 LRN [id number]) Posture Evaluation Position Standing Head/C-Spine Posture Forward Head L-Spine Posture Increased Lordosis Shoulder Posture (R) Elevated Pelvis Posture Anteriorly Tilted Comments Posture Comments Dowagers hump. PT-OP-K Range of Motion Start: 08/25/23 19:38 Freq: Status: Active Protocol: Document 09/07/23 10:40 LRN (Rec: 09/07/23 11:26 LRN [id number]) Lumbar Spine Range of Motion Lumbar Spine Active Degrees Testing Position Standing Flexion 87 Extension 15 Rotation Left 20 Rotation Right 30 Lateral Flexion Left 18 Lateral Flexion Right 15 Hip Goniometric Range of Motion Hip Right Passive Testing Position Supine Abduction 32 Internal Rotation 30 External Rotation 60 Left Passive Testing Position Supine Abduction 25 Internal Rotation 30 External Rotation 65 PT-OP-M Strength Start: 08/25/23 19:38 Freq: Status: Active Protocol: Document 09/07/23 10:40 LRN (Rec: 09/07/23 11:26 LRN [id number]) Hip Strength Hip Manual Muscle Testing Right Flexion (L2) 3 Fair Comments Strength is 5/5 except as indicated above. Left Extension (S1) 3 Fair External Rotation 3+ Fair+ Comments Strength is 5/5 except as indicated above. PT-OP-Q Treatments Start: 08/25/23 19:38 Freq: Status: Active Protocol: Document 09/18/23 10:39 LRN (Rec: 09/18/23 11:21 LRN [id number]) Therapeutic Exercises Supine Exercises Lateral Hip stretch Side right Reps/Minutes 1' Hip flexor stretch Supine Exercise Name Finn Test position f/b nelson glut squeeze in hip ext position Side bilateral Reps/Minutes 5' Comments Extra time to determine max mery stretch. Happy Baby Pose Supine Exercise Name Holding ankles, then with straightening of legs. Side bilateral Reps/Minutes 2' DKTC Side bilateral Reps/Minutes 2' Piriformis stretch Supine Exercise Name Knee crossed over ankle and knee to opp shoulder. Side right Reps/Minutes 4' Long Hold Kegel Supine Exercise Name CanaryHop program 0.1-25 mV's Comments Cued to relax after holding and cued to hold through 10 sec time. Quick Kegel Comments Cued to relax Manual Therapy Treatment Soft Tissue Mobilization Hip Body Location Hip Flexors Neuro Re-Education Treatment Other Activities Vemg for relaxation trng Details CanaryHop program 0.1-25 mV's for Quick and Long hold PF contractions Reps/Duration 20x each with double resting time. Self-Care/Home Management Treatment Activities Self-Care/Home Management Activities Issued HEP: Piriformis, Lateral Hip & Finn test position hip flexor stretch. PT-OP-T Assessment and Plan Start: 08/25/23 19:38 Freq: Status: Active Protocol: Document 09/18/23 10:39 LRN (Rec: 09/18/23 11:21 LRN [id number]) Physical Therapy Assessment Goals Three Impairment MCKENZIE with a strong cough, sneeze or laughing. Short Term Goal (STG) Improve PF strength with Long Hold 10 sec's (per Vemg biofeedback) and Quick Flicks 8 reps prior to fatigue ( Initial: Long Hold 10 secs, Quick Flicks 6 reps), and relax her PF floor so that she can initiate a urinary stream without long delay or having to void twice to empty. STG Duration 8 wks-11/03/23 Care Home Goal (LTG) Improve PF strength of contraction of endurance to regain continence with coughing, sneezing or laughing . LTG Duration 16 wks-12/29/23 Two Impairment Constipation with reports of dehydration Short Term Goal (STG) Pt will be educated and able to recall norms for fluids input/output and BMs. STG Duration 8 wks-11/03/23 Educational Interpreter Goal (LTG) Pt will track daily fluid input/output and BM's to improve to normal values (1/2 body wgt in ounces) and daily bowel movements. LTG Duration 16 wks-12/29/23 One Impairment Pt lacks an independent self care HEP. Short Term Goal (STG) Pt educated in aggrevator ex's and in methods to quiet the autonomic nervous system to decrease resting tone. STG Duration 8 wks-11/03/23 Educational Interpreter Goal (LTG) Pt will be independent in a self care HEP for PF flexibility/relaxation techniques, BM massage and Bowel care, . Learn what she needs to do to be come continent and agreeable HEP for post therapy . 09/07/23: HEP: Diaphragmatic breathing ex. 09/11/23: Diaphragmatic breathing review, pt able to perform with training and cuing. 09/18/23: HEP: Piriformis, Lateral Hip & Finn test position hip flexor stretch. LTG Duration 16 wks-12/29/23 progressed 09/18/23. Assessment Summary Assessment Pt is a 38 yo female with stress urinary incontinence, poor core pressure management, poor core stabilization (weak TA/Trunk rotators), asymmetry of mobility of her hips/trunk , and per subjective report poor fluid & bowel management, she appears to have a tight PF with gapping of her introitus, very good PF strength w/o areas of tenderness with manual palpation. Fluid & bowel management is involved and scarring from her may be a bigger factor in her urinary leakage. Today, pt able to achieve 25 mV goal and program was helpful in allowing pt to achieve resting tone much quicker. Pt may need review and use of deep breathing to lower resting tone. Physical Therapy Plan Frequency and Duration Frequency of Treatment 1x/Week Duration of treatment (weeks) 16 Plan of Care Start Date 09/07/23 Plan of Care End Date 12/29/23 Next Visit Focus/Plan Next Note Type Treatment Note Next Visit Plan Next: Assess bladder diary for fluid/bowel management and recommend changes as needed. Assess for need of sacral balancing, ?stretch PF w/ex and manually. Neuro re-ed for PF training of relaxation ex's/activities per Vemg biofeedback. Trunk and hip stretches for symmetry , hip strengthening, STM to C- section scar. Pt education in core pressure mgmt and PF relaxation w/voiding. POC: Pt education, Manual therapy. Biofeedback/neural re-ed with vaginal sensor. Therapeutic Exercises, Therapeutic Activities, Neuromuscular Reeducation.
--- NOTE | 2023-10-16 13:32 | PT.OTN ---
Current Diagnoses Constipation, unspecified (10/16/23) Stiffness of unspecified hip, not elsewhere classified (10/16/23) Stiffness of other specified joint, not elsewhere classified (10/16/23) Muscle weakness (generalized) (10/16/23) Stress incontinence (female) (male) (10/16/23) Physical Therapy Treatment Note PT-OP-A Visit Information Start: 08/25/23 19:38 Freq: Status: Active Protocol: Document 10/16/23 10:38 LRN (Rec: 10/16/23 11:23 LRN [id number]) Out-Patient Physical Therapy Visit Information Visit Information Visit Type Treatment Note Visit Start Time 10:38 Visit Stop Time 11:17 Visit Number 06/08 Evaluation Information Evaluation Date 09/07/23 Precautions Precautions History of 2 C-sections: breach-01/2019, & 11/2021 PT-OP-B Current Condition Start: 08/25/23 19:38 Freq: Status: Active Protocol: Document 09/07/23 10:40 LRN (Rec: 09/07/23 11:26 LRN [id number]) Current Condition History of Current Condition Onset Date 2021 Current Complaints Urinary incontinence History of Current Condition After daughter born in 2021, had urinary incontinence with cough, sneeze, laugh; started [employer] program for 1-2 yrs and thinks she made it worse because she had to take time to fully empty bladder and her symptoms didn't improve, stating may have made it worse. She returned to running 6 months ago 2x/wk, 10 mi/wk (previously was 5x/wk & 40 mi/wk). She states she hasn't noticed a change in her leakage with return to running. The pt voids before running, but leaks a little when she first starts running. Prior Treatments and Tests Pt is taking on her own weight control medications. Future Testing and Treatments Planned [facility] referral for kidney function. Treatment Goals Patient/Caregiver Goals Pt goals: Regain continence with cough, sneeze, laugh Normal fluid levels (in/out) and normal bowel movements. Learn what she needs to do to be come continent and agreeable HEP for post therapy . 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 Taking weight control medications independent of medical care. Pt receiving care for possible kidney dysfunction. PT-OP-C Subjective Start: 08/25/23 19:38 Freq: Status: Active Protocol: Document 10/16/23 10:38 LRN (Rec: 10/16/23 11:23 LRN [id number]) OP-PT Subjective Patient Comments Patient Comments States no change. Less running due to knee pain. Hydrating more, BM's almost every day (was couple times in a week). Saw nutrionist. PT-OP-I Pelvic Floor Start: 08/25/23 19:38 Freq: Status: Active Protocol: Document 10/16/23 10:38 LRN (Rec: 10/16/23 11:23 LRN [id number]) Pelvic Floor Assessment Comments Pelvic Floor Comments SACRAL BALANCING: LOCATION: Sacrum, Ileums Sacral Sulcus PA R Sacral Sulcus inferior glide R GUY PA R Ischial Tub PA ?L 6 pt balancing Iliopsoas Pubic Rami superior glide PT-OP-J Posture/Palpation/Skin Start: 08/25/23 19:38 Freq: Status: Active Protocol: Document 09/07/23 10:40 LRN (Rec: 09/07/23 11:26 LRN [id number]) Posture Evaluation Position Standing Head/C-Spine Posture Forward Head L-Spine Posture Increased Lordosis Shoulder Posture (R) Elevated Pelvis Posture Anteriorly Tilted Comments Posture Comments Dowagers hump. PT-OP-K Range of Motion Start: 08/25/23 19:38 Freq: Status: Active Protocol: Document 09/07/23 10:40 LRN (Rec: 09/07/23 11:26 LRN [id number]) Lumbar Spine Range of Motion Lumbar Spine Active Degrees Testing Position Standing Flexion 87 Extension 15 Rotation Left 20 Rotation Right 30 Lateral Flexion Left 18 Lateral Flexion Right 15 Hip Goniometric Range of Motion Hip Right Passive Testing Position Supine Abduction 32 Internal Rotation 30 External Rotation 60 Left Passive Testing Position Supine Abduction 25 Internal Rotation 30 External Rotation 65 PT-OP-M Strength Start: 08/25/23 19:38 Freq: Status: Active Protocol: Document 09/07/23 10:40 LRN (Rec: 09/07/23 11:26 LRN [id number]) Hip Strength Hip Manual Muscle Testing Right Flexion (L2) 3 Fair Comments Strength is 5/5 except as indicated above. Left Extension (S1) 3 Fair External Rotation 3+ Fair+ Comments Strength is 5/5 except as indicated above. PT-OP-Q Treatments Start: 08/25/23 19:38 Freq: Status: Active Protocol: Document 10/16/23 10:38 LRN (Rec: 10/16/23 13:29 LRN [id number]) Manual Therapy Treatment Soft Tissue Mobilization Sacral balancing Body Location Sacrum/Ileums, gentle pressure Mobilization Type Sustained Pressure Intensity/Depth Moderate Body Position Prone Comments R Sacral Sulcus PA mob R Sacral Sulcus inferior glide R GUY PA L Ischial Tub PA 4 pt balancing (appox of PSIS' s/Ischial tubs, medial mob PSIS/Ischial tub, approx PSIS/ Ischial tub). Self-Care/Home Management Treatment Activities Self-Care/Home Management Activities I/S pt to use cryotherapy at home if needed for pain s/p treatement. PT-OP-T Assessment and Plan Start: 08/25/23 19:38 Freq: Status: Active Protocol: Document 10/16/23 10:38 LRN (Rec: 10/16/23 11:23 LRN [id number]) Physical Therapy Assessment Goals Three Impairment MCKENZIE with a strong cough, sneeze or laughing. Short Term Goal (STG) Improve PF strength with Long Hold 10 sec's (per Vemg biofeedback) and Quick Flicks 8 reps prior to fatigue ( Initial: Long Hold 10 secs, Quick Flicks 6 reps), and relax her PF floor so that she can initiate a urinary stream without long delay or having to void twice to empty. STG Duration 8 wks-11/03/23 Instructional Systems Specialist Goal (LTG) Improve PF strength of contraction of endurance to regain continence with coughing, sneezing or laughing . LTG Duration 16 wks-12/29/23 Two Impairment Constipation with reports of dehydration Short Term Goal (STG) Pt will be educated and able to recall norms for fluids input/output and BMs. STG Duration 8 wks-11/03/23 Halfway Goal (LTG) Pt will track daily fluid input/output and BM's to improve to normal values (1/2 body wgt in ounces) and daily bowel movements. LTG Duration 16 wks-12/29/23 One Impairment Pt lacks an independent self care HEP. Short Term Goal (STG) Pt educated in aggrevator ex's and in methods to quiet the autonomic nervous system to decrease resting tone. STG Duration 8 wks-11/03/23 Instructional Systems Specialist Goal (LTG) Pt will be independent in a self care HEP for PF flexibility/relaxation techniques, BM massage and Bowel care, . Learn what she needs to do to be come continent and agreeable HEP for post therapy . 09/07/23: HEP: Diaphragmatic breathing ex. 09/11/23: Diaphragmatic breathing review, pt able to perform with training and cuing. 09/18/23: HEP: Piriformis, Lateral Hip & Finn test position hip flexor stretch. LTG Duration 16 wks-12/29/23 progressed 09/18/23. Assessment Summary Assessment Pt is a 38 yo female with stress urinary incontinence, poor core pressure management, poor core stabilization (weak TA/Trunk rotators), asymmetry of mobility of her hips/trunk , and per subjective report poor fluid & bowel management, she appears to have a tight PF with gapping of her introitus, very good PF strength w/o areas of tenderness with manual palpation. Fluid & bowel management is involved and scarring from her may be a bigger factor in her urinary leakage. Today, pt admits to forgetting her bladder diary and will redo as she is now different with start of nutrition program. Pt demonstrates severe sacral stiffness on the R side. Was not able to complete full Sacral balancing due to extended time needed to go slowly and gently on the tissues. Pt stopping running is expected to be helpful in improving in MCKENZIE. Physical Therapy Plan Frequency and Duration Frequency of Treatment 1x/Week Duration of treatment (weeks) 16 Plan of Care Start Date 09/07/23 Plan of Care End Date 12/29/23 Next Visit Focus/Plan Next Note Type Treatment Note Next Visit Plan Next: Assess bladder diary for fluid/bowel management and recommend changes as needed, educate in hydration norms & educate in aggrevator ex's and in methods to quiet the autonomic nervous system to decrease resting tone.. Complete sacral balancing if tolerated. ?stretch PF w/ex and manually. Neuro re-ed for PF training of relaxation ex's/activities per Vemg biofeedback. STM to scar. Pt education in core pressure mgmt and PF relaxation w/voiding. Trunk and hip stretches for symmetry , hip strengthening. POC: Pt education, Manual therapy. Biofeedback/neural re-ed with vaginal sensor. Therapeutic Exercises, Therapeutic Activities, Neuromuscular Reeducation.
--- NOTE | 2023-10-27 12:20 | PT.OTN ---
Current Diagnoses Constipation, unspecified (10/27/23) Stiffness of unspecified hip, not elsewhere classified (10/27/23) Stiffness of other specified joint, not elsewhere classified (10/27/23) Muscle weakness (generalized) (10/27/23) Stress incontinence (female) (male) (10/27/23) Physical Therapy Treatment Note PT-OP-A Visit Information Start: 08/25/23 19:38 Freq: Status: Active Protocol: Document 10/27/23 11:22 LRN (Rec: 10/27/23 12:19 LRN [id number]) Out-Patient Physical Therapy Visit Information Visit Information Visit Type Treatment Note Visit Start Time 11:22 Visit Stop Time 12:00 Visit Number 07/08 Evaluation Information Evaluation Date 09/07/23 Precautions Precautions History of 2 C-sections: breach-01/2019, & 11/2021 PT-OP-B Current Condition Start: 08/25/23 19:38 Freq: Status: Active Protocol: Document 09/07/23 10:40 LRN (Rec: 09/07/23 11:26 LRN [id number]) Current Condition History of Current Condition Onset Date 2021 Current Complaints Urinary incontinence History of Current Condition After daughter born in 2021, had urinary incontinence with cough, sneeze, laugh; started U[employer] program for 1-2 yrs and thinks she made it worse because she had to take time to fully empty bladder and her symptoms didn't improve, stating may have made it worse. She returned to running 6 months ago 2x/wk, 10 mi/wk (previously was 5x/wk & 40 mi/wk). She states she hasn't noticed a change in her leakage with return to running. The pt voids before running, but leaks a little when she first starts running. Prior Treatments and Tests Pt is taking on her own weight control medications. Future Testing and Treatments Planned Bean Dumper referral for kidney function. Treatment Goals Patient/Caregiver Goals Pt goals: Regain continence with cough, sneeze, laugh Normal fluid levels (in/out) and normal bowel movements. Learn what she needs to do to be come continent and agreeable HEP for post therapy . 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 Taking weight control medications independent of medical care. Pt receiving care for possible kidney dysfunction. PT-OP-C Subjective Start: 08/25/23 19:38 Freq: Status: Active Protocol: Document 10/27/23 11:22 LRN (Rec: 10/27/23 12:19 LRN [id number]) OP-PT Subjective Patient Comments Patient Comments Saw doctor and was told she strained or has overuse syndrome; therefore hasn't ran in 10 days and has been using IBP, not using ice or wrapping. No leakaing now that she is not running. Sore in LB since last session. PT-OP-I Pelvic Floor Start: 08/25/23 19:38 Freq: Status: Active Protocol: Document 10/16/23 10:38 LRN (Rec: 10/16/23 11:23 LRN [id number]) Pelvic Floor Assessment Comments Pelvic Floor Comments SACRAL BALANCING: LOCATION: Sacrum, Ileums Sacral Sulcus PA R Sacral Sulcus inferior glide R GUY PA R Ischial Tub PA ?L 6 pt balancing Iliopsoas Pubic Rami superior glide PT-OP-J Posture/Palpation/Skin Start: 08/25/23 19:38 Freq: Status: Active Protocol: Document 09/07/23 10:40 LRN (Rec: 09/07/23 11:26 LRN [id number]) Posture Evaluation Position Standing Head/C-Spine Posture Forward Head L-Spine Posture Increased Lordosis Shoulder Posture (R) Elevated Pelvis Posture Anteriorly Tilted Comments Posture Comments Dowagers hump. PT-OP-K Range of Motion Start: 08/25/23 19:38 Freq: Status: Active Protocol: Document 09/07/23 10:40 LRN (Rec: 09/07/23 11:26 LRN [id number]) Lumbar Spine Range of Motion Lumbar Spine Active Degrees Testing Position Standing Flexion 87 Extension 15 Rotation Left 20 Rotation Right 30 Lateral Flexion Left 18 Lateral Flexion Right 15 Hip Goniometric Range of Motion Hip Right Passive Testing Position Supine Abduction 32 Internal Rotation 30 External Rotation 60 Left Passive Testing Position Supine Abduction 25 Internal Rotation 30 External Rotation 65 PT-OP-M Strength Start: 08/25/23 19:38 Freq: Status: Active Protocol: Document 09/07/23 10:40 LRN (Rec: 09/07/23 11:26 LRN [id number]) Hip Strength Hip Manual Muscle Testing Right Flexion (L2) 3 Fair Comments Strength is 5/5 except as indicated above. Left Extension (S1) 3 Fair External Rotation 3+ Fair+ Comments Strength is 5/5 except as indicated above. PT-OP-Q Treatments Start: 08/25/23 19:38 Freq: Status: Active Protocol: Document 10/27/23 11:22 LRN (Rec: 10/27/23 12:19 LRN [id number]) Therapeutic Exercises Supine Exercises PF awareness trainng Supine Exercise Name Using Kassy program for PF relaxation-deep breathing, reverse Kegel, biofeed Reps/Minutes 15' Comments Cued to open kassy as quickly as possible following contraction Quick & Long Lateral Hip stretch Side right Reps/Minutes 1' Hip flexor stretch Supine Exercise Name Finn Test position f/b nelson glut squeeze in hip ext position Side bilateral Reps/Minutes 5' Comments Extra time to determine max mery stretch. Happy Baby Pose Supine Exercise Name Holding ankles, then with straightening of legs. Side bilateral Reps/Minutes 2' DKTC Side bilateral Reps/Minutes 2' Piriformis stretch Supine Exercise Name Knee crossed over ankle and knee to opp shoulder. Side right Reps/Minutes 4' Deep Breathing Supine Exercise Name Deep breathing for PF relaxation. Reps/Minutes throughout treatment used breathing to relax PF (after contractions) Self-Care/Home Management Treatment Education Other Education Reviewed Bladder dairy and discussed fluid intake (AM/PM, norms), bowel movement frequency (3x/wk), & nighttime voiding frequency (1x/night). Pt educated in PF muscles and internal organ positioning, discussed cystocele and how this can worsen with decreased bowel mobility and breath holding. PT-OP-T Assessment and Plan Start: 08/25/23 19:38 Freq: Status: Active Protocol: Document 10/27/23 11:22 LRN (Rec: 10/27/23 12:19 LRN [id number]) Physical Therapy Assessment Goals Three Impairment MCKENZIE with a strong cough, sneeze or laughing. Short Term Goal (STG) Improve PF strength with Long Hold 10 sec's (per Vemg biofeedback) and Quick Flicks 8 reps prior to fatigue ( Initial: Long Hold 10 secs, Quick Flicks 6 reps), and relax her PF floor so that she can initiate a urinary stream without long delay or having to void twice to empty. STG Duration 8 wks-11/03/23 Supervisor Parking Lot Goal (LTG) Improve PF strength of contraction of endurance to regain continence with coughing, sneezing or laughing . LTG Duration 16 wks-12/29/23 Two Impairment Constipation with reports of dehydration Short Term Goal (STG) Pt will be educated and able to recall norms for fluids input/output and BMs. STG Duration 8 wks-11/03/23 Mcc Goal (LTG) Pt will track daily fluid input/output and BM's to improve to normal values (1/2 body wgt in ounces) and daily bowel movements. LTG Duration 16 wks-12/29/23 One Impairment Pt lacks an independent self care HEP. Short Term Goal (STG) Pt educated in aggrevator ex's and in methods to quiet the autonomic nervous system to decrease resting tone. 10/27/23: Educated in pt in use of deep breathing for PF relaxation. STG Duration 8 wks-11/03/23 progressed (need ed aggr ex, mindfulness,mood ring) Supervisor Parking Lot Goal (LTG) Pt will be independent in a self care HEP for PF flexibility/relaxation techniques, BM massage and Bowel care, . Learn what she needs to do to be come continent and agreeable HEP for post therapy . 09/07/23: HEP: Diaphragmatic breathing ex. 09/11/23: Diaphragmatic breathing review, pt able to perform with training and cuing. 09/18/23: HEP: Piriformis, Lateral Hip & Finn test position hip flexor stretch. 10/27/23: I/S in focusing on PF relaxation after contraction and long holding. LTG Duration 16 wks-12/29/23 progressed 10/27/23. Assessment Summary Assessment Pt is a 38 yo female with stress urinary incontinence ( MCKENZIE), poor core pressure management, poor core stabilization (weak TA/Trunk rotators), asymmetry of mobility of her hips/trunk, and per subjective report poor fluid & bowel management, she appears to have a tight PF with gapping of her introitus, very good PF strength w/o areas of tenderness with manual palpation. Fluid & bowel management is involved and scarring from her C- section may be a bigger factor in her urinary leakage. Today , she reports LB discomfort since last session (no use of coldpack), but reported no LBP when lying supine for PF biofeedback training using kassy program. Fair response to sacral balancing due to ongoing soreness. Pt's fluid intake is ~56 oz, 1/2 body wgt is 90 oz. Urinary voiding at end of her day is long as she sits to completely empty, not all at once. Pt was able to more quickly relax her PF with use of biofeeback, but consistency of relaxation was poor. Physical Therapy Plan Frequency and Duration Frequency of Treatment 1x/Week Duration of treatment (weeks) 16 Plan of Care Start Date 09/07/23 Plan of Care End Date 12/29/23 Next Visit Focus/Plan Next Note Type Treatment Note Next Visit Plan Next: Educate in aggrevator ex's and in use of mindfulness and circulation (mood ring). Check & stretch PF w/ex and manually. Neuro re-ed: for PF training of relaxation ex's/activities per Vemg biofeedback. STM to scar, and assess scarring if her scar is a bigger factor in her urinary leakage Pt education in core pressure mgmt and PF relaxation w/ voiding. Trunk and hip stretches for symmetry, hip strengthening. POC: Pt education, Manual therapy. Biofeedback/neural re-ed with vaginal sensor. Therapeutic Exercises, Therapeutic Activities, Neuromuscular Reeducation.
--- NOTE | 2023-10-31 13:04 | PT.OTN ---
Current Diagnoses Constipation, unspecified (10/31/23) Stiffness of unspecified hip, not elsewhere classified (10/31/23) Stiffness of other specified joint, not elsewhere classified (10/31/23) Muscle weakness (generalized) (10/31/23) Stress incontinence (female) (male) (10/31/23) Physical Therapy Treatment Note PT-OP-A Visit Information Start: 08/25/23 19:38 Freq: Status: Active Protocol: Document 10/31/23 10:30 LRN (Rec: 10/31/23 11:20 LRN [id number]) Out-Patient Physical Therapy Visit Information Visit Information Visit Type Treatment Note Visit Start Time 10:30 Visit Stop Time 11:14 Visit Number 08/08 Evaluation Information Evaluation Date 09/07/23 Precautions Precautions History of 2 C-sections: breach-01/2019, & 11/2021 PT-OP-B Current Condition Start: 08/25/23 19:38 Freq: Status: Active Protocol: Document 09/07/23 10:40 LRN (Rec: 09/07/23 11:26 LRN [id number]) Current Condition History of Current Condition Onset Date 2021 Current Complaints Urinary incontinence History of Current Condition After daughter born in 2021, had urinary incontinence with cough, sneeze, laugh; started [employer] program for 1-2 yrs and thinks she made it worse because she had to take time to fully empty bladder and her symptoms didn't improve, stating may have made it worse. She returned to running 6 months ago 2x/wk, 10 mi/wk (previously was 5x/wk & 40 mi/wk). She states she hasn't noticed a change in her leakage with return to running. The pt voids before running, but leaks a little when she first starts running. Prior Treatments and Tests Pt is taking on her own weight control medications. Future Testing and Treatments Planned Brake Engineer referral for kidney function. Treatment Goals Patient/Caregiver Goals Pt goals: Regain continence with cough, sneeze, laugh Normal fluid levels (in/out) and normal bowel movements. Learn what she needs to do to be come continent and agreeable HEP for post therapy . 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 Taking weight control medications independent of medical care. Pt receiving care for possible kidney dysfunction. PT-OP-C Subjective Start: 08/25/23 19:38 Freq: Status: Active Protocol: Document 10/31/23 10:30 LRN (Rec: 10/31/23 11:20 LRN [id number]) OP-PT Subjective Patient Comments Patient Reported Progress Same PT-OP-I Pelvic Floor Start: 08/25/23 19:38 Freq: Status: Active Protocol: Document 10/16/23 10:38 LRN (Rec: 10/16/23 11:23 LRN [id number]) Pelvic Floor Assessment Comments Pelvic Floor Comments SACRAL BALANCING: LOCATION: Sacrum, Ileums Sacral Sulcus PA R Sacral Sulcus inferior glide R GUY PA R Ischial Tub PA ?L 6 pt balancing Iliopsoas Pubic Rami superior glide PT-OP-J Posture/Palpation/Skin Start: 08/25/23 19:38 Freq: Status: Active Protocol: Document 09/07/23 10:40 LRN (Rec: 09/07/23 11:26 LRN [id number]) Posture Evaluation Position Standing Head/C-Spine Posture Forward Head L-Spine Posture Increased Lordosis Shoulder Posture (R) Elevated Pelvis Posture Anteriorly Tilted Comments Posture Comments Dowagers hump. PT-OP-K Range of Motion Start: 08/25/23 19:38 Freq: Status: Active Protocol: Document 09/07/23 10:40 LRN (Rec: 09/07/23 11:26 LRN [id number]) Lumbar Spine Range of Motion Lumbar Spine Active Degrees Testing Position Standing Flexion 87 Extension 15 Rotation Left 20 Rotation Right 30 Lateral Flexion Left 18 Lateral Flexion Right 15 Hip Goniometric Range of Motion Hip Right Passive Testing Position Supine Abduction 32 Internal Rotation 30 External Rotation 60 Left Passive Testing Position Supine Abduction 25 Internal Rotation 30 External Rotation 65 PT-OP-M Strength Start: 08/25/23 19:38 Freq: Status: Active Protocol: Document 09/07/23 10:40 LRN (Rec: 09/07/23 11:26 LRN [id number]) Hip Strength Hip Manual Muscle Testing Right Flexion (L2) 3 Fair Comments Strength is 5/5 except as indicated above. Left Extension (S1) 3 Fair External Rotation 3+ Fair+ Comments Strength is 5/5 except as indicated above. PT-OP-Q Treatments Start: 08/25/23 19:38 Freq: Status: Active Protocol: Document 10/31/23 10:30 LRN (Rec: 10/31/23 11:20 LRN [id number]) Therapeutic Exercises Supine Exercises PF awareness trainng Supine Exercise Name Using Kassy program for PF relaxation-deep breathing, reverse Kegel, biofeed Equipment Used Kassy program: .1-25 mV max. 10 SH/10 SR x 6' Reps/Minutes 8' Comments Cued to open kassy as quickly as possible following contraction Quick & Long Hip flexor stretch Supine Exercise Name Finn Test position f/b nelson glut squeeze in hip ext position Side bilateral Reps/Minutes 5' Comments Extra time to determine max mery stretch. Neuro Re-Education Treatment Other Activities Vemg Details Scroll PF Contract/relax w/ 0feedback and with visual feedback Reps/Duration 40 Comments Pt cued to isolate PF and use visual feedback to improve relaxation of PF and to keep PF contraction strength stable . Self-Care/Home Management Treatment Education Other Education Pt educated in use of mindfulness practice with handout issued. Discussed use of mood ring and temperature difference in body of Stressed vs relaxed condition. PT-OP-T Assessment and Plan Start: 08/25/23 19:38 Freq: Status: Active Protocol: Document 10/31/23 10:30 LRN (Rec: 10/31/23 11:20 LRN [id number]) Physical Therapy Assessment Goals Three Impairment MCKENZIE with a strong cough, sneeze or laughing. Short Term Goal (STG) Improve PF strength with Long Hold 10 sec's (per Vemg biofeedback) and Quick Flicks 8 reps prior to fatigue ( Initial: Long Hold 10 secs, Quick Flicks 6 reps), and relax her PF floor so that she can initiate a urinary stream without long delay or having to void twice to empty. 10/31/23: Pt able to hold PF contraction 10 secs. STG Duration 8 wks-11/03/23 progressed [facility] Goal (LTG) Improve PF strength of contraction of endurance to regain continence with coughing, sneezing or laughing . LTG Duration 16 wks-12/29/23 Two Impairment Constipation with reports of dehydration Short Term Goal (STG) Pt will be educated and able to recall norms for fluids input/output and BMs. STG Duration 8 wks-11/03/23 [facility] Goal (LTG) Pt will track daily fluid input/output and BM's to improve to normal values (1/2 body wgt in ounces) and daily bowel movements. LTG Duration 16 wks-12/29/23 One Impairment Pt lacks an independent self care HEP. Short Term Goal (STG) Pt educated in aggrevator ex's and in methods to quiet the autonomic nervous system to decrease resting tone. 10/27/23: Educated in pt in use of deep breathing for PF relaxation. 10/31/23: Pt education in use of mindfulness and circulation (mood ring). STG Duration 8 wks-11/03/23 progressed Mining Analyst Goal (LTG) Pt will be independent in a self care HEP for PF flexibility/relaxation techniques, BM massage and Bowel care. Learn what she needs to do to be come continent and agreeable HEP for post therapy . 09/07/23: HEP: Diaphragmatic breathing ex. 09/11/23: Diaphragmatic breathing review, pt able to perform with training and cuing. 09/18/23: HEP: Piriformis, Lateral Hip & Finn test position hip flexor stretch. 10/27/23: I/S in focusing on PF relaxation after contraction and long holding. LTG Duration 16 wks-12/29/23 progressed 10/27/23 Assessment Summary Assessment Pt is a 38 yo female with stress urinary incontinence ( MCKENZIE), poor core pressure management, poor core stabilization (weak TA/Trunk rotators), asymmetry of mobility of her hips/trunk, and per subjective report poor fluid & bowel management, she appears to have a tight PF with gapping of her introitus, very good PF strength w/o areas of tenderness with manual palpation. Fluid & bowel management is involved and scarring from her C- section may be a bigger factor in her urinary leakage. Today pt demonstrated + response to neuro-mich by improved ability to hold contraction and relax her PF with use of biofeedback. Physical Therapy Plan Frequency and Duration Frequency of Treatment 1x/Week Duration of treatment (weeks) 16 Plan of Care Start Date 09/07/23 Plan of Care End Date 12/29/23 Next Visit Focus/Plan Next Note Type Treatment Note Next Visit Plan Next: Assess Goal #2. Check & stretch PF w/ex and check PF strength manually before Long Hold 10 sec's (per Vemg biofeedback) and Quick Flicks 8 reps prior to fatigue. Educate in aggrevator ex's. Pt education: BM massage. Pt education in core pressure mgmt and PF relaxation w/ voiding. STM to scar, and assess scarring if her scar is a bigger factor in her urinary leakage. Trunk and hip stretches for symmetry, hip strengthening. POC: Pt education, Manual therapy. Biofeedback/neural re-ed with vaginal sensor. Therapeutic Exercises, Therapeutic Activities, Neuromuscular Reeducation.
--- NOTE | 2023-12-08 16:03 | PT.OTN ---
Current Diagnoses Constipation, unspecified (12/08/23) Stiffness of unspecified hip, not elsewhere classified (12/08/23) Stiffness of other specified joint, not elsewhere classified (12/08/23) Muscle weakness (generalized) (12/08/23) Stress incontinence (female) (male) (12/08/23) Physical Therapy Treatment Note PT-OP-A Visit Information Start: 08/25/23 19:38 Freq: Status: Active Protocol: Document 12/08/23 08:19 LRN (Rec: 12/08/23 09:07 LRN [id number]) Out-Patient Physical Therapy Visit Information Visit Information Visit Type Treatment Note Visit Start Time 08:19 Visit Stop Time 09:05 Visit Number 09/07 Evaluation Information Evaluation Date 09/07/23 Precautions Precautions History of 2 C-sections: breach-01/2019, & 11/2021 PT-OP-B Current Condition Start: 08/25/23 19:38 Freq: Status: Active Protocol: Document 09/07/23 10:40 LRN (Rec: 09/07/23 11:26 LRN [id number]) Current Condition History of Current Condition Onset Date 2021 Current Complaints Urinary incontinence History of Current Condition After daughter born in 2021, had urinary incontinence with cough, sneeze, laugh; started [employer] program for 1-2 yrs and thinks she made it worse because she had to take time to fully empty bladder and her symptoms didn't improve, stating may have made it worse. She returned to running 6 months ago 2x/wk, 10 mi/wk (previously was 5x/wk & 40 mi/wk). She states she hasn't noticed a change in her leakage with return to running. The pt voids before running, but leaks a little when she first starts running. Prior Treatments and Tests Pt is taking on her own weight control medications. 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 Treatment Goals Patient/Caregiver Goals Pt goals: Regain continence with cough, sneeze, laugh Normal fluid levels (in/out) and normal bowel movements. Learn what she needs to do to be come continent and agreeable HEP for post therapy . 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 Taking weight control medications independent of medical care. Pt receiving care for possible kidney dysfunction. PT-OP-C Subjective Start: 08/25/23 19:38 Freq: Status: Active Protocol: Document 12/08/23 08:19 LRN (Rec: 12/08/23 09:07 LRN [id number]) OP-PT Subjective Patient Comments Patient Comments Not . PT for L hip & is bothering her back. Taking it easy on running for past month. Started therapy for hip but thinks she tore L hamstring, but needs imaging to diagnose. PT-OP-I Pelvic Floor Start: 08/25/23 19:38 Freq: Status: Active Protocol: Document 12/08/23 08:19 LRN (Rec: 12/08/23 09:07 LRN [id number]) Pelvic Floor Assessment SEMG (uV) Baseline 4.0 Quick Contraction 14.2 10 Second Contraction 20.8 Contraction Ability Manual Muscle Testing Left 3 Manual Muscle Testing Right 4 Manual Muscle Testing Anterior 3 Manual Muscle Testing Posterior 3 Muscle Endurance (Seconds) 9 Number of Quick Contractions In 10 9 Seconds Comments Pelvic Floor Comments Quick Flicks: 10 reps strength (uV's): avg work 14.2, avg 8.7 rest. 20 reps strength (uV's): avg work 15.0, avg 8.7 rest. Long Holds: 10 reps strength (uV's): avg work 20.8, avg rest 4.1. 20 rep s strength (uV's): avg work , avg rest . PT-OP-J Posture/Palpation/Skin Start: 08/25/23 19:38 Freq: Status: Active Protocol: Document 09/07/23 10:40 LRN (Rec: 09/07/23 11:26 LRN [id number]) Posture Evaluation Position Standing Head/C-Spine Posture Forward Head L-Spine Posture Increased Lordosis Shoulder Posture (R) Elevated Pelvis Posture Anteriorly Tilted Comments Posture Comments Dowagers hump. PT-OP-K Range of Motion Start: 08/25/23 19:38 Freq: Status: Active Protocol: Document 09/07/23 10:40 LRN (Rec: 09/07/23 11:26 LRN [id number]) Lumbar Spine Range of Motion Lumbar Spine Active Degrees Testing Position Standing Flexion 87 Extension 15 Rotation Left 20 Rotation Right 30 Lateral Flexion Left 18 Lateral Flexion Right 15 Hip Goniometric Range of Motion Hip Right Passive Testing Position Supine Abduction 32 Internal Rotation 30 External Rotation 60 Left Passive Testing Position Supine Abduction 25 Internal Rotation 30 External Rotation 65 PT-OP-M Strength Start: 08/25/23 19:38 Freq: Status: Active Protocol: Document 09/07/23 10:40 LRN (Rec: 09/07/23 11:26 LRN [id number]) Hip Strength Hip Manual Muscle Testing Right Flexion (L2) 3 Fair Comments Strength is 5/5 except as indicated above. Left Extension (S1) 3 Fair External Rotation 3+ Fair+ Comments Strength is 5/5 except as indicated above. PT-OP-Q Treatments Start: 08/25/23 19:38 Freq: Status: Active Protocol: Document 12/08/23 08:19 LRN (Rec: 12/08/23 15:57 LRN [id number]) Therapeutic Exercises Supine Exercises Long Hold Kegel Supine Exercise Name Digital and strengthening per Vemg Reps/Minutes 20' Comments Digital and strengthening per Vemg Quick Kegel Supine Exercise Name Digital and strengthening per Vemg Reps/Minutes 18' Comments Digital and strengthening per Vemg Resting PF Supine Exercise Name Vemg at rest Reps/Minutes 1' Comments 4 mV's at resting. Self-Care/Home Management Treatment Education Other Education 3' Pt education and discussion in bowel management and discussion/education in norms for urination times, fluid intake, and times between voids. 5' Pt lead discussion of what she is doing in PT for her L hip, thinking she has a hamstring tear as her hip jt is normal. PT-OP-T Assessment and Plan Start: 08/25/23 19:38 Freq: Status: Active Protocol: Document 12/08/23 08:19 LRN (Rec: 12/08/23 09:07 LRN [id number]) Physical Therapy Assessment Goals Three Impairment MCKENZIE with a strong cough, sneeze or laughing. Short Term Goal (STG) Improve PF strength with Long Hold 10 sec's (per Vemg biofeedback) and Quick Flicks 8 reps prior to fatigue ( Initial: Long Hold 10 secs, Quick Flicks 6 reps), and relax her PF floor so that she can initiate a urinary stream without long delay or having to void twice to empty. 10/31/23: Pt able to hold PF contraction 10 secs. STG Duration 8 wks-11/03/23 progressed Ophthalmic Pathologist Goal (LTG) Improve PF strength of contraction of endurance to regain continence with coughing, sneezing or laughing . 12/08/23: Pt continent with coughing, sneezing, laughing, sometimes not with urge if holding too long. LTG Duration 16 wks-12/29/23 Two Impairment Constipation with reports of dehydration Short Term Goal (STG) Pt will be educated and able to recall norms for fluids input/output and BMs. 12/08/23: Pt able to recall norms for fluid input and output and BM daily. STG Duration 8 wks-11/03/23 (12/08/23: MET GOAL) Fpc Goal (LTG) Pt will track daily fluid input/output and BM's to improve to normal values (1/2 body wgt in ounces) and daily bowel movements. 12/08/23: Pt reporting BMs 4- 5x/wk, must take time to fully void at nights, monitoring fluid in/out puts and drinking 1/2 body wgt in ozs. LTG Duration 16 wks-12/29/23 progressing 12/08/23 (need BMs daily) One Impairment Pt lacks an independent self care HEP. Short Term Goal (STG) Pt educated in aggrevator ex's and in methods to quiet the autonomic nervous system to decrease resting tone. 10/27/23: Educated in pt in use of deep breathing for PF relaxation. 10/31/23: Pt education in use of mindfulness and circulation (mood ring). STG Duration 8 wks-11/03/23 progressed Fpc Goal (LTG) Pt will be independent in a self care HEP for PF flexibility/relaxation techniques, BM massage and Bowel care. Learn what she needs to do to be come continent and agreeable HEP for post therapy . 09/07/23: HEP: Diaphragmatic breathing ex. 09/11/23: Diaphragmatic breathing review, pt able to perform with training and cuing. 09/18/23: HEP: Piriformis, Lateral Hip & Finn test position hip flexor stretch. 10/27/23: I/S in focusing on PF relaxation after contraction and long holding. LTG Duration 16 wks-12/29/23 progressed 10/27/23 Assessment Summary Assessment STG# 2 met. Pt presents (per Vemg assess) with poor PF relaxation with quick and long hold contractions. Relaxation strength tends to increase over rep times, after long hold contractions. Her resting is unstable between contractions. Contraction strength is good and stable holding. With manual assessment, pelvic floor L sidewall is weak due to tightness, probably from having L hip pain. Pt's LB is being bothered with new L hip rehab. PT in [place]. Physical Therapy Plan Frequency and Duration Frequency of Treatment 1x/Week Duration of treatment (weeks) 16 Plan of Care Start Date 09/07/23 Plan of Care End Date 12/29/23 Next Visit Focus/Plan Next Note Type Treatment Note Next Visit Plan Next: Assess LTG #2. Educate in aggrevator ex's & in BM massage. Decrease PF tightness on L sidewall with manual stretch and deep breathing. Pt education in core pressure mgmt and PF relaxation w/ voiding. STM to scar, and assess scarring if her scar is a bigger factor in her urinary leakage. Trunk and hip stretches for symmetry, hip strengthening. POC: Pt education, Manual therapy. Biofeedback/neural re-ed with vaginal sensor. Therapeutic Exercises, Therapeutic Activities, Neuromuscular Reeducation.
--- NOTE | 2023-12-08 16:06 | PT.OTN ---
Current Diagnoses Constipation, unspecified (12/08/23) Stiffness of unspecified hip, not elsewhere classified (12/08/23) Stiffness of other specified joint, not elsewhere classified (12/08/23) Muscle weakness (generalized) (12/08/23) Stress incontinence (female) (male) (12/08/23) Physical Therapy Treatment Note PT-OP-A Visit Information Start: 08/25/23 19:38 Freq: Status: Active Protocol: Document 12/08/23 08:19 LRN (Rec: 12/08/23 09:07 LRN [id number]) Out-Patient Physical Therapy Visit Information Visit Information Visit Type Treatment Note Visit Start Time 08:19 Visit Stop Time 09:05 Visit Number 09/07 Evaluation Information Evaluation Date 09/07/23 Precautions Precautions History of 2 C-sections: breach-01/2019, & 11/2021 PT-OP-B Current Condition Start: 08/25/23 19:38 Freq: Status: Active Protocol: Document 09/07/23 10:40 LRN (Rec: 09/07/23 11:26 LRN [id number]) Current Condition History of Current Condition Onset Date 2021 Current Complaints Urinary incontinence History of Current Condition After daughter born in 2021, had urinary incontinence with cough, sneeze, laugh; started [employer] program for 1-2 yrs and thinks she made it worse because she had to take time to fully empty bladder and her symptoms didn't improve, stating may have made it worse. She returned to running 6 months ago 2x/wk, 10 mi/wk (previously was 5x/wk & 40 mi/wk). She states she hasn't noticed a change in her leakage with return to running. The pt voids before running, but leaks a little when she first starts running. Prior Treatments and Tests Pt is taking on her own weight control medications. 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 Treatment Goals Patient/Caregiver Goals Pt goals: Regain continence with cough, sneeze, laugh Normal fluid levels (in/out) and normal bowel movements. Learn what she needs to do to be come continent and agreeable HEP for post therapy . 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 Taking weight control medications independent of medical care. Pt receiving care for possible kidney dysfunction. PT-OP-C Subjective Start: 08/25/23 19:38 Freq: Status: Active Protocol: Document 12/08/23 08:19 LRN (Rec: 12/08/23 09:07 LRN [id number]) OP-PT Subjective Patient Comments Patient Comments Not . PT for L hip & is bothering her back. Taking it easy on running for past month. Started therapy for hip but thinks she tore L hamstring, but needs imaging to diagnose. PT-OP-I Pelvic Floor Start: 08/25/23 19:38 Freq: Status: Active Protocol: Document 12/08/23 08:19 LRN (Rec: 12/08/23 09:07 LRN [id number]) Pelvic Floor Assessment SEMG (uV) Baseline 4.0 Quick Contraction 14.2 10 Second Contraction 20.8 Contraction Ability Manual Muscle Testing Left 3 Manual Muscle Testing Right 4 Manual Muscle Testing Anterior 3 Manual Muscle Testing Posterior 3 Muscle Endurance (Seconds) 9 Number of Quick Contractions In 10 9 Seconds Comments Pelvic Floor Comments Quick Flicks: 10 reps strength (uV's): avg work 14.2, avg 8.7 rest. 20 reps strength (uV's): avg work 15.0, avg 8.7 rest. Long Holds: 10 reps strength (uV's): avg work 20.8, avg rest 4.1. 20 rep s strength (uV's): avg work , avg rest . PT-OP-J Posture/Palpation/Skin Start: 08/25/23 19:38 Freq: Status: Active Protocol: Document 09/07/23 10:40 LRN (Rec: 09/07/23 11:26 LRN [id number]) Posture Evaluation Position Standing Head/C-Spine Posture Forward Head L-Spine Posture Increased Lordosis Shoulder Posture (R) Elevated Pelvis Posture Anteriorly Tilted Comments Posture Comments Dowagers hump. PT-OP-K Range of Motion Start: 08/25/23 19:38 Freq: Status: Active Protocol: Document 09/07/23 10:40 LRN (Rec: 09/07/23 11:26 LRN [id number]) Lumbar Spine Range of Motion Lumbar Spine Active Degrees Testing Position Standing Flexion 87 Extension 15 Rotation Left 20 Rotation Right 30 Lateral Flexion Left 18 Lateral Flexion Right 15 Hip Goniometric Range of Motion Hip Right Passive Testing Position Supine Abduction 32 Internal Rotation 30 External Rotation 60 Left Passive Testing Position Supine Abduction 25 Internal Rotation 30 External Rotation 65 PT-OP-M Strength Start: 08/25/23 19:38 Freq: Status: Active Protocol: Document 09/07/23 10:40 LRN (Rec: 09/07/23 11:26 LRN [id number]) Hip Strength Hip Manual Muscle Testing Right Flexion (L2) 3 Fair Comments Strength is 5/5 except as indicated above. Left Extension (S1) 3 Fair External Rotation 3+ Fair+ Comments Strength is 5/5 except as indicated above. PT-OP-Q Treatments Start: 08/25/23 19:38 Freq: Status: Active Protocol: Document 12/08/23 08:19 LRN (Rec: 12/08/23 15:57 LRN [id number]) Therapeutic Exercises Supine Exercises Long Hold Kegel Supine Exercise Name Digital and strengthening per Vemg Reps/Minutes 20' Comments Digital and strengthening per Vemg Quick Kegel Supine Exercise Name Digital and strengthening per Vemg Reps/Minutes 18' Comments Digital and strengthening per Vemg Resting PF Supine Exercise Name Vemg at rest Reps/Minutes 1' Comments 4 mV's at resting. Self-Care/Home Management Treatment Education Other Education 3' Pt education and discussion in bowel management and discussion/education in norms for urination times, fluid intake, and times between voids. 4' Pt lead discussion of what she is doing in PT for her L hip, thinking she has a hamstring tear as her hip jt is normal. PT-OP-T Assessment and Plan Start: 08/25/23 19:38 Freq: Status: Active Protocol: Document 12/08/23 08:19 LRN (Rec: 12/08/23 09:07 LRN [id number]) Physical Therapy Assessment Goals Three Impairment MCKENZIE with a strong cough, sneeze or laughing. Short Term Goal (STG) Improve PF strength with Long Hold 10 sec's (per Vemg biofeedback) and Quick Flicks 8 reps prior to fatigue ( Initial: Long Hold 10 secs, Quick Flicks 6 reps), and relax her PF floor so that she can initiate a urinary stream without long delay or having to void twice to empty. 10/31/23: Pt able to hold PF contraction 10 secs. STG Duration 8 wks-11/03/23 progressed Director Call Goal (LTG) Improve PF strength of contraction of endurance to regain continence with coughing, sneezing or laughing . 12/08/23: Pt continent with coughing, sneezing, laughing, sometimes not with urge if holding too long. LTG Duration 16 wks-12/29/23 Two Impairment Constipation with reports of dehydration Short Term Goal (STG) Pt will be educated and able to recall norms for fluids input/output and BMs. 12/08/23: Pt able to recall norms for fluid input and output and BM daily. STG Duration 8 wks-11/03/23 (12/08/23: MET GOAL) Intermediate Goal (LTG) Pt will track daily fluid input/output and BM's to improve to normal values (1/2 body wgt in ounces) and daily bowel movements. 12/08/23: Pt reporting BMs 4- 5x/wk, must take time to fully void at nights, monitoring fluid in/out puts and drinking 1/2 body wgt in ozs. LTG Duration 16 wks-12/29/23 progressing 12/08/23 (need BMs daily) One Impairment Pt lacks an independent self care HEP. Short Term Goal (STG) Pt educated in aggrevator ex's and in methods to quiet the autonomic nervous system to decrease resting tone. 10/27/23: Educated in pt in use of deep breathing for PF relaxation. 10/31/23: Pt education in use of mindfulness and circulation (mood ring). STG Duration 8 wks-11/03/23 progressed Intermediate Goal (LTG) Pt will be independent in a self care HEP for PF flexibility/relaxation techniques, BM massage and Bowel care. Learn what she needs to do to be come continent and agreeable HEP for post therapy . 09/07/23: HEP: Diaphragmatic breathing ex. 09/11/23: Diaphragmatic breathing review, pt able to perform with training and cuing. 09/18/23: HEP: Piriformis, Lateral Hip & Finn test position hip flexor stretch. 10/27/23: I/S in focusing on PF relaxation after contraction and long holding. LTG Duration 16 wks-12/29/23 progressed 10/27/23 Assessment Summary Assessment STG# 2 met. Pt presents (per Vemg assess) with poor PF relaxation with quick and long hold contractions. Relaxation strength tends to increase over rep times, after long hold contractions. Her resting is unstable between contractions. Contraction strength is good and stable holding. With manual assessment, pelvic floor L sidewall is weak due to tightness, probably from having L hip pain. Pt's LB is being bothered with new L hip rehab. PT in [place]. Physical Therapy Plan Frequency and Duration Frequency of Treatment 1x/Week Duration of treatment (weeks) 16 Plan of Care Start Date 09/07/23 Plan of Care End Date 12/29/23 Next Visit Focus/Plan Next Note Type Treatment Note Next Visit Plan Next: Assess LTG #2. Educate in aggrevator ex's & in BM massage. Decrease PF tightness on L sidewall with manual stretch and deep breathing. Pt education in core pressure mgmt and PF relaxation w/ voiding. STM to scar, and assess scarring if her scar is a bigger factor in her urinary leakage. Trunk and hip stretches for symmetry, hip strengthening. POC: Pt education, Manual therapy. Biofeedback/neural re-ed with vaginal sensor. Therapeutic Exercises, Therapeutic Activities, Neuromuscular Reeducation.
--- NOTE | 2023-12-18 11:14 | PT.OTN ---
Current Diagnoses Constipation, unspecified (12/18/23) Stiffness of unspecified hip, not elsewhere classified (12/18/23) Stiffness of other specified joint, not elsewhere classified (12/18/23) Muscle weakness (generalized) (12/18/23) Stress incontinence (female) (male) (12/18/23) Physical Therapy Treatment Note PT-OP-A Visit Information Start: 08/25/23 19:38 Freq: Status: Active Protocol: Document 12/18/23 09:05 LRN (Rec: 12/18/23 09:49 LRN [id number]) Out-Patient Physical Therapy Visit Information Visit Information Visit Type Treatment Note Visit Start Time 09:05 Visit Stop Time 09:47 Visit Number 10/08 Evaluation Information Evaluation Date 09/07/23 Precautions Precautions History of 2 C-sections: breach-01/2019, & 11/2021 PT-OP-B Current Condition Start: 08/25/23 19:38 Freq: Status: Active Protocol: Document 09/07/23 10:40 LRN (Rec: 09/07/23 11:26 LRN [id number]) Current Condition History of Current Condition Onset Date 2021 Current Complaints Urinary incontinence History of Current Condition After daughter born in 2021, had urinary incontinence with cough, sneeze, laugh; started U[employer] program for 1-2 yrs and thinks she made it worse because she had to take time to fully empty bladder and her symptoms didn't improve, stating may have made it worse. She returned to running 6 months ago 2x/wk, 10 mi/wk (previously was 5x/wk & 40 mi/wk). She states she hasn't noticed a change in her leakage with return to running. The pt voids before running, but leaks a little when she first starts running. Prior Treatments and Tests Pt is taking on her own weight control medications. 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 Treatment Goals Patient/Caregiver Goals Pt goals: Regain continence with cough, sneeze, laugh Normal fluid levels (in/out) and normal bowel movements. Learn what she needs to do to be come continent and agreeable HEP for post therapy . 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 Taking weight control medications independent of medical care. Pt receiving care for possible kidney dysfunction. PT-OP-C Subjective Start: 08/25/23 19:38 Freq: Status: Active Protocol: Document 12/18/23 09:05 LRN (Rec: 12/18/23 09:49 LRN [id number]) OP-PT Subjective Patient Comments Patient Comments No changes. Doing PT for hamstrings, so everything hurts. Very painful at the sit bone. Has been working on hamstring strength and stretches. PT-OP-I Pelvic Floor Start: 08/25/23 19:38 Freq: Status: Active Protocol: Document 12/08/23 08:19 LRN (Rec: 12/08/23 09:07 LRN [id number]) Pelvic Floor Assessment SEMG (uV) Baseline 4.0 Quick Contraction 14.2 10 Second Contraction 20.8 Contraction Ability Manual Muscle Testing Left 3 Manual Muscle Testing Right 4 Manual Muscle Testing Anterior 3 Manual Muscle Testing Posterior 3 Muscle Endurance (Seconds) 9 Number of Quick Contractions In 10 9 Seconds Comments Pelvic Floor Comments Quick Flicks: 10 reps strength (uV's): avg work 14.2, avg 8.7 rest. 20 reps strength (uV's): avg work 15.0, avg 8.7 rest. Long Holds: 10 reps strength (uV's): avg work 20.8, avg rest 4.1. 20 rep s strength (uV's): avg work , avg rest . PT-OP-J Posture/Palpation/Skin Start: 08/25/23 19:38 Freq: Status: Active Protocol: Document 09/07/23 10:40 LRN (Rec: 09/07/23 11:26 LRN [id number]) Posture Evaluation Position Standing Head/C-Spine Posture Forward Head L-Spine Posture Increased Lordosis Shoulder Posture (R) Elevated Pelvis Posture Anteriorly Tilted Comments Posture Comments Dowagers hump. PT-OP-K Range of Motion Start: 08/25/23 19:38 Freq: Status: Active Protocol: Document 09/07/23 10:40 LRN (Rec: 09/07/23 11:26 LRN [id number]) Lumbar Spine Range of Motion Lumbar Spine Active Degrees Testing Position Standing Flexion 87 Extension 15 Rotation Left 20 Rotation Right 30 Lateral Flexion Left 18 Lateral Flexion Right 15 Hip Goniometric Range of Motion Hip Right Passive Testing Position Supine Abduction 32 Internal Rotation 30 External Rotation 60 Left Passive Testing Position Supine Abduction 25 Internal Rotation 30 External Rotation 65 PT-OP-M Strength Start: 08/25/23 19:38 Freq: Status: Active Protocol: Document 09/07/23 10:40 LRN (Rec: 09/07/23 11:26 LRN [id number]) Hip Strength Hip Manual Muscle Testing Right Flexion (L2) 3 Fair Comments Strength is 5/5 except as indicated above. Left Extension (S1) 3 Fair External Rotation 3+ Fair+ Comments Strength is 5/5 except as indicated above. PT-OP-Q Treatments Start: 08/25/23 19:38 Freq: Status: Active Protocol: Document 12/18/23 09:05 LRN (Rec: 12/18/23 09:49 LRN [id number]) Therapeutic Exercises Supine Exercises PF awareness trainng Supine Exercise Name Endurance program for PF relaxation-deep breathing, reverse Kegel, biofeed Equipment Used Endurance program: 10 SH/10 SR x 6' Reps/Minutes 17' Comments Cued to open karie as quickly as possible following contraction Quick & Long Long Hold Kegel Supine Exercise Name Digital strengthening Reps/Minutes 4' Comments V cuing for area of contraction, see PF assessment Quick Kegel Supine Exercise Name Digital Reps/Minutes 2' Comments See PF assessment Resting PF Supine Exercise Name Vemg at rest Reps/Minutes 1' Comments 4 mV's at resting. Manual Therapy Treatment Soft Tissue Mobilization Bowel massage Body Location ILU massage Intensity/Depth superficial>mod Body Position Prone Comments Pt needing to keep on track for self massage portion. Self-Care/Home Management Treatment Education Caregiver Education Educated pt in use of wand for self stretch of L side of PF. Other Education Reviewed breathwork to have bowel mvmt. Educated pt in self ILU massage (see manual). Briefly educated pt in use of self stretch with wand, dept to stretch (2nd knuckle insert ), and direction of stretch and holding until relaxation. Activities Self-Care/Home Management Activities Issued handout for ILU bowel massage. Issued Medium wand for self stretch of PF (L side). PT-OP-T Assessment and Plan Start: 08/25/23 19:38 Freq: Status: Active Protocol: Document 12/18/23 09:05 LRN (Rec: 12/18/23 09:49 LRN [id number]) Physical Therapy Assessment Goals Three Impairment MCKENZIE with a strong cough, sneeze or laughing. Short Term Goal (STG) Improve PF strength with Long Hold 10 sec's (per Vemg biofeedback) and Quick Flicks 8 reps prior to fatigue ( Initial: Long Hold 10 secs, Quick Flicks 6 reps), and relax her PF floor so that she can initiate a urinary stream without long delay or having to void twice to empty. 10/31/23: Pt able to hold PF contraction 10 secs. 12/18/23: Holds PF 10 secs, 20x w/o fatigue. STG Duration 8 wks-11/03/23 progressed (need quick 8 reps) Clerk Entry Level Goal (LTG) Improve PF strength of contraction of endurance to regain continence with coughing, sneezing or laughing . 12/08/23: Pt continent with coughing, sneezing, laughing, sometimes not with urge if holding too long. LTG Duration 16 wks-12/29/23 Two Impairment Constipation with reports of dehydration Short Term Goal (STG) Pt will be educated and able to recall norms for fluids input/output and BMs. 12/08/23: Pt able to recall norms for fluid input and output and BM daily. STG Duration 8 wks-11/03/23 (12/08/23: MET GOAL) Clerk Entry Level Goal (LTG) Pt will track daily fluid input/output and BM's to improve to normal values (1/2 body wgt in ounces) and daily bowel movements. 12/08/23: Pt reporting BMs 4- 5x/wk, must take time to fully void at nights, monitoring fluid in/out puts and drinking 1/2 body wgt in ozs. 12/18/23: Pt educated in bowel massage. Most day has a BM (~4-5 times/wk). LTG Duration 16 wks-12/29/23 progressing 12/08/23 (need BMs daily) One Impairment Pt lacks an independent self care HEP. Short Term Goal (STG) Pt educated in aggrevator ex's and in methods to quiet the autonomic nervous system to decrease resting tone. 10/27/23: Educated in pt in use of deep breathing for PF relaxation. 10/31/23: Pt education in use of mindfulness and circulation (mood ring). STG Duration 8 wks-11/03/23 progressed Alf Goal (LTG) Pt will be independent in a self care HEP for PF flexibility/relaxation techniques, BM massage and Bowel care. Learn what she needs to do to be come continent and agreeable HEP for post therapy . 09/07/23: HEP: Diaphragmatic breathing ex. 09/11/23: Diaphragmatic breathing review, pt able to perform with training and cuing. 09/18/23: HEP: Piriformis, Lateral Hip & Finn test position hip flexor stretch. 10/27/23: I/S in focusing on PF relaxation after contraction and long holding. LTG Duration 16 wks-12/29/23 progressed 10/27/23 Assessment Summary Assessment PT rehab in [place] for hip pain appears to be causing flare up of pain in her sit bone from stretches and strengthening, that may be hindering her progress. Today , resting tone is low (norm); therefore L hip pain doesn't appear to be causing increased PF tone. Long hold PF contraction of 10 secs, is strong (over 20 reps) w/o fatigue, quick contractions not as strong, but difference between contraction and relaxation is same difference as last session, although strength of contraction was greater then, compared to today. Pt is using reverse Kegel to relax PF contraction; therefore she needs to be able to relax PF with reverse Kegel technique. Physical Therapy Plan Frequency and Duration Frequency of Treatment 1x/Week Duration of treatment (weeks) 16 Plan of Care Start Date 09/07/23 Plan of Care End Date 12/29/23 Next Visit Focus/Plan Next Note Type Treatment Note Next Visit Plan POC before 12/29/23. Focus on manual stretch of PF to decrease PF tightness on L sidewall with manual stretch and deep breathing. Vemg needed for assessment ( ). Pt education in core pressure mgmt and PF relaxation w/ voiding. STM to scar, and assess scarring if her scar is a bigger factor in her urinary leakage. As needed (pt in PT rehab in [place] for L hip) for Trunk and hip stretches for symmetry, hip strengthening. POC: Pt education, Manual therapy. Biofeedback/neural re-ed with vaginal sensor. Therapeutic Exercises, Therapeutic Activities, Neuromuscular Reeducation.
--- NOTE | 2024-07-09 13:33 | PT.OPDS ---
Current Diagnoses Constipation, unspecified (12/18/23) Stiffness of unspecified hip, not elsewhere classified (12/18/23) Stiffness of other specified joint, not elsewhere classified (12/18/23) Muscle weakness (generalized) (12/18/23) Stress incontinence (female) (male) (12/18/23) Visit Care Team Role Provider Type Yared Zavaleta DO Attending Provider Non-Staff Family Provider Primary Care Provider Referring Provider Specialty: Family Practice Address: [address] [place] [address], [id number] Email: Visit Number Visit Number 10/08 Discharge Summary PT-OP-B Current Condition Start: 08/25/23 19:38 Freq: Status: Active Protocol: Document 09/07/23 10:40 LRN (Rec: 09/07/23 11:26 LRN [id number]) Current Condition History of Current Condition Onset Date 2021 Current Complaints Urinary incontinence History of Current Condition After daughter born in 2021, had urinary incontinence with cough, sneeze, laugh; started [employer] program for 1-2 yrs and thinks she made it worse because she had to take time to fully empty bladder and her symptoms didn't improve, stating may have made it worse. She returned to running 6 months ago 2x/wk, 10 mi/wk (previously was 5x/wk & 40 mi/wk). She states she hasn't noticed a change in her leakage with return to running. The pt voids before running, but leaks a little when she first starts running. Prior Treatments and Tests Pt is taking on her own weight control medications. 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 Treatment Goals Patient/Caregiver Goals Pt goals: Regain continence with cough, sneeze, laugh Normal fluid levels (in/out) and normal bowel movements. Learn what she needs to do to be come continent and agreeable HEP for post therapy . 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 Taking weight control medications independent of medical care. Pt receiving care for possible kidney dysfunction. PT-OP-C Subjective Start: 08/25/23 19:38 Freq: Status: Active Protocol: Document 12/18/23 09:05 LRN (Rec: 12/18/23 09:49 LRN [id number]) OP-PT Subjective Patient Comments Patient Comments No changes. Doing PT for hamstrings, so everything hurts. Very painful at the sit bone. Has been working on hamstring strength and stretches. PT-OP-I Pelvic Floor Start: 08/25/23 19:38 Freq: Status: Active Protocol: Document 12/08/23 08:19 LRN (Rec: 12/08/23 09:07 LRN [id number]) Pelvic Floor Assessment SEMG (uV) Baseline 4.0 Quick Contraction 14.2 10 Second Contraction 20.8 Contraction Ability Manual Muscle Testing Left 3 Manual Muscle Testing Right 4 Manual Muscle Testing Anterior 3 Manual Muscle Testing Posterior 3 Muscle Endurance (Seconds) 9 Number of Quick Contractions In 10 9 Seconds Comments Pelvic Floor Comments Quick Flicks: 10 reps strength (uV's): avg work 14.2, avg 8.7 rest. 20 reps strength (uV's): avg work 15.0, avg 8.7 rest. Long Holds: 10 reps strength (uV's): avg work 20.8, avg rest 4.1. 20 rep s strength (uV's): avg work , avg rest . PT-OP-J Posture/Palpation/Skin Start: 08/25/23 19:38 Freq: Status: Active Protocol: Document 09/07/23 10:40 LRN (Rec: 09/07/23 11:26 LRN [id number]) Posture Evaluation Position Standing Head/C-Spine Posture Forward Head L-Spine Posture Increased Lordosis Shoulder Posture (R) Elevated Pelvis Posture Anteriorly Tilted Comments Posture Comments Dowagers hump. PT-OP-K Range of Motion Start: 08/25/23 19:38 Freq: Status: Active Protocol: Document 09/07/23 10:40 LRN (Rec: 09/07/23 11:26 LRN [id number]) Lumbar Spine Range of Motion Lumbar Spine Active Degrees Testing Position Standing Flexion 87 Extension 15 Rotation Left 20 Rotation Right 30 Lateral Flexion Left 18 Lateral Flexion Right 15 Hip Goniometric Range of Motion Hip Right Passive Testing Position Supine Abduction 32 Internal Rotation 30 External Rotation 60 Left Passive Testing Position Supine Abduction 25 Internal Rotation 30 External Rotation 65 PT-OP-M Strength Start: 08/25/23 19:38 Freq: Status: Active Protocol: Document 09/07/23 10:40 LRN (Rec: 09/07/23 11:26 LRN [id number]) Hip Strength Hip Manual Muscle Testing Right Flexion (L2) 3 Fair Comments Strength is 5/5 except as indicated above. Left Extension (S1) 3 Fair External Rotation 3+ Fair+ Comments Strength is 5/5 except as indicated above. PT-OP-T Assessment and Plan Start: 08/25/23 19:38 Freq: Status: Active Protocol: Document 07/09/24 13:30 KJ (Rec: 07/09/24 13:33 KJ Laptop) Physical Therapy Assessment Goals Three Impairment MCKENZIE with a strong cough, sneeze or laughing. Short Term Goal (STG) Improve PF strength with Long Hold 10 sec's (per Vemg biofeedback) and Quick Flicks 8 reps prior to fatigue ( Initial: Long Hold 10 secs, Quick Flicks 6 reps), and relax her PF floor so that she can initiate a urinary stream without long delay or having to void twice to empty. 10/31/23: Pt able to hold PF contraction 10 secs. 12/18/23: Holds PF 10 secs, 20x w/o fatigue. STG Duration 8 wks-11/03/23 progressed (need quick 8 reps) Residential Goal (LTG) Improve PF strength of contraction of endurance to regain continence with coughing, sneezing or laughing . 12/08/23: Pt continent with coughing, sneezing, laughing, sometimes not with urge if holding too long. LTG Duration 16 wks-12/29/23 Two Impairment Constipation with reports of dehydration Short Term Goal (STG) Pt will be educated and able to recall norms for fluids input/output and BMs. 12/08/23: Pt able to recall norms for fluid input and output and BM daily. STG Duration 8 wks-11/03/23 (12/08/23: MET GOAL) Residential Goal (LTG) Pt will track daily fluid input/output and BM's to improve to normal values (1/2 body wgt in ounces) and daily bowel movements. 12/08/23: Pt reporting BMs 4- 5x/wk, must take time to fully void at nights, monitoring fluid in/out puts and drinking 1/2 body wgt in ozs. 12/18/23: Pt educated in bowel massage. Most day has a BM (~4-5 times/wk). LTG Duration 16 wks-12/29/23 progressing 12/08/23 (need BMs daily) One Impairment Pt lacks an independent self care HEP. Short Term Goal (STG) Pt educated in aggrevator ex's and in methods to quiet the autonomic nervous system to decrease resting tone. 10/27/23: Educated in pt in use of deep breathing for PF relaxation. 10/31/23: Pt education in use of mindfulness and circulation (mood ring). STG Duration 8 wks-11/03/23 progressed Residential Goal (LTG) Pt will be independent in a self care HEP for PF flexibility/relaxation techniques, BM massage and Bowel care. Learn what she needs to do to be come continent and agreeable HEP for post therapy . 09/07/23: HEP: Diaphragmatic breathing ex. 09/11/23: Diaphragmatic breathing review, pt able to perform with training and cuing. 09/18/23: HEP: Piriformis, Lateral Hip & Finn test position hip flexor stretch. 10/27/23: I/S in focusing on PF relaxation after contraction and long holding. LTG Duration 16 wks-12/29/23 progressed 10/27/23 Progress Towards Goals Progress Towards Goals Progressing Toward Goals Physical Therapy Plan Discharge Physical Therapy Discharge Reasons No Longer Attending PT Discharge Comments Pt seen for initial evaluation on 09/07/23. She attended 7 follow up visits, the last being on 12/18/23. She cancelled remaining appointments without rescheduling. She is now discharged from PT.
== END 2024-07-09 14:37 | disposition home or self-care (01) ==
LOC: PHYS 09:00
PROVIDERS: Family Provider Student in an Organized Health Care Education/Training Program; PCP Student in an Organized Health Care Education/Training Program; Referring Provider Student in an Organized Health Care Education/Training Program; Visit Provider Student in an Organized Health Care Education/Training Program
DX: N39.3 Stress incontinence (female) (male) (principal); K59.00 Constipation, unspecified; M25.659 Stiffness of unspecified hip, not elsewhere classified; M62.81 Muscle weakness (generalized); M25.69 Stiffness of other specified joint, not elsewhere classified
CPT/HCPCS: 97110; 97112; 97140; 97162; 97535

== ENCOUNTER → 2024-01-16 09:20 | Outpatient (CLI) | payer OTHER, SELFPAY ==
--- NOTE | 2024-01-16 09:24 | DI.MRI.S_ITS ---
PROCEDURE: MR KNEE RT WO CON INDICATIONS: PAIN IN RT KNEE TECHNIQUE: Noncontrast sagittal PD fast spin echo and T2 fast spin echo with fat saturation, sagittal 3-D FLASH with fat saturation; coronal T1 spin echo and PD fast spin echo with fat saturation, and axial PD fast spin echo with fat saturation through the knee. COMPARISON: None. FINDINGS: Image quality: Excellent. Menisci: The medial and lateral menisci demonstrate normal morphology and internal signal. The meniscal root ligaments appear intact. Cruciate ligaments: The anterior and posterior cruciate ligaments appear intact. Medial structures: The medial collateral ligament appears intact. Visualized portions of the pes anserinus tendons appear normal. No abnormal bursal fluid. Lateral structures: The lateral collateral ligament, long and short heads of the biceps femoris tendon appear intact. The popliteus tendon appears normal. Iliotibial band appears normal. Anterior structures: The quadriceps and patellar tendons appear intact. Patellar alignment is normal. Lateral ventral trochlear prominence is present. Moderate edema within the superolateral aspect of the infrapatellar fat pad. Bones and cartilage: No bone marrow contusions or fractures. There is a focal region of full-thickness articular cartilage loss overlying the mid/anterior weight-bearing aspect of the medial femoral condyle measuring 10 mm, with mild underlying ill-defined degenerative marrow edema. Moderate articular cartilage loss overlies the lateral patellar facet. Focal region of high-grade articular cartilage loss overlies the medial patellar facet measuring 5 mm. Joint space: There is a small knee joint effusion and a small Carrero's cyst. Normal appearing synovial plicae are incidentally noted. IMPRESSION: 1. No internal derangement. 2. Findings consistent with lateral patellofemoral friction syndrome in the appropriate clinical setting. 3. Medial and patellofemoral compartment articular cartilage loss. 4. Knee joint effusion and Carrero's cyst. Dictated by: Jp Srivastava M.D. on 01/16/2024 at 13:55 Approved by: Jp Srivastava M.D. on 01/16/2024 at 13:57
== END ==
PROVIDERS: Family Provider Student in an Organized Health Care Education/Training Program; PCP Student in an Organized Health Care Education/Training Program; Referring Provider Student in an Organized Health Care Education/Training Program; Visit Provider Student in an Organized Health Care Education/Training Program
DX: M71.21 Synovial cyst of popliteal space [Baker], right knee (principal); M25.561 Pain in right knee; M25.461 Effusion, right knee
CPT/HCPCS: 73721